=== PATIENT | male | born 1965 | race Caucasian/White ===

== ENCOUNTER 2020-12-20 06:57 | Emergency (ER) | payer SELFPAY ==
[2020-12-20 06:58] VITALS: BP 161/104; PULSE 99; RESP 18; TEMP 36.8; O2SAT 99; BMI 40.0
[2020-12-20 07:14] VITALS: BP 161/104; PULSE 99; RESP 18; TEMP 36.8; O2SAT 99
--- NOTE | 2020-12-20 07:28 | RAD_ITS ---
STUDY: X-RAY - RIGHT TIBIA AND FIBULA REASON FOR EXAM: Male, 55 years old. wound TECHNIQUE: 2 view(s) of the tibia and fibula were obtained. COMPARISON: None. FINDINGS: Diffuse smooth cortical thickening throughout the anterior tibial diaphysis (deep to the soft tissue swelling/wound) without periosteal reaction or nellie lytic process. Normal visualized fibula. There is non-specific soft tissue swelling of the anterior lower leg. RAD/Tibia & Fibula 2 Views IMPRESSION: Anterior lower leg soft tissue swelling. Anterior tibial cortical thickening without periosteal reaction, query chronic osteomyelitis or sequela of old injury. Electronically Signed: Brent Saunders MD ([place]) at 7:59 EDT , Service support ,
--- NOTE | 2020-12-20 07:30 | ED.VIS.LOWEX ---
HPI History of Present Illness Chief Complaint: Wound Narrative Narrative: 55-year-old male presenting for evaluation of a right tibial wound. Patient states that this has been here since May. He states it is slowly distended down the distal tibia. Patient describes some pain with ambulation but is able to ambulate. He has not seen his primary care physician and states that since Covid has been difficult to get a visit. He states his only medical problem is hypertension and he has not been taking his blood pressure medication because he cannot afford it. He states he has not had his wound evaluated elsewhere because he has had to work to make ends meet. He denies fever, chills, nausea, vomiting. [facility] Medical History (Updated 12/20/20 @ 07:08 by Mary Ochoa) Hypertension Home Medications clindamycin HCl 450 mg PO TID 10 Days #90 cap 12/20/20 [Rx Last Taken Unknown] Allergy/AdvReac Type Severity Reaction Status Date / Time No Known Allergies Allergy Verified 12/20/20 07:03 Social History Smoking Status: Never smoker [facility] ED Constitutional Constitutional ED: Denies chills, fever(s) or sweats Eyes Eyes: Denies blurry vision or diplopia ENT ENT ED: Denies rhinorrhea or sore throat Cardiovascular Cardiovascular: Denies chest pain or palpitations Respiratory/Chest Respiratory/Chest: Denies cough, dyspnea or sputum Gastrointestinal Gastrointestinal: Denies abdominal pain, nausea or vomiting Genitourinary Genitourinary ED: Denies dysuria or hematuria Musculoskeletal Musculoskeletal: Denies back pain or neck pain Integumentary Reports other Details: Large wound right tibia Neurologic Neurologic: Denies headache(s) or paresthesias EXAM Physical Exam Const Vital Signs: 12/20/20 06:58 12/20/20 07:14 12/20/20 09:22 Temperature 98.2 F 98.2 F Temperature Source Oral Oral Pulse Rate 99 99 72 Respiratory Rate 18 18 18 Blood Pressure 161/104 H 161/104 H 110/66 Blood Pressure Mean 123 123 80 Pulse Ox 99 99 99 Oxygen Delivery Method Room Air Room Air Room Air 12/20/20 09:23 Temperature 98 F Temperature Source Temporal Pulse Rate 81 Respiratory Rate 16 Blood Pressure 110/66 Blood Pressure Mean 80 Pulse Ox 93 Oxygen Delivery Method Room Air Positive well nourished General Appearance ED: NAD HEENT Reports moist mucous membranes normocephalic and atraumatic Resp normal respiratory effort and clear to auscultation bilaterally Cardio regular rate and regular rhythm Extremity Extremity Narrative: 6 x 5 cm area of the anterior right tibia with skin sloughing and mild cellulitic change around the borders. There is no drainage. Mild tenderness to palpation without crepitance. Neuro oriented x3 Sensorium / Orientation: alert MDM MDM MDM Narrative Medical decision making narrative: Patient presenting with a chronic wound which has been present since May. He states it is worsening currently. He is ambulatory. There is no drainage from the wound currently. He has not had any systemic signs or symptoms. His CBC today shows he has no leukocytosis with a white blood cell count 10.9. H&H are stable. CMP shows he has a mildly elevated bilirubin at 1.3 and a creatinine of 2.17 which is new from his previous renal function testing and July 2018. ESR is 54. CRP 23.6. Tib-fib x-ray of the right lower extremity on my interpretation shows no acute fracture or subluxation. There does not appear to be any subcutaneous edema. The radiologist read this as anterior tibial cortical thickening without periosteal reaction. Patient was discussed with the nurse practitioner on-call for Dr. Cortes. She did recommend follow-up with the wound care clinic for initial wound treatment. She stated that the wound care clinic will determine if he needed surgical intervention such as debridement. Patient started on antibiotics with first dose in the ED. A dressing will be placed over the wound. Wound care instructions are given to the patient. He was given referral to the wound care clinic as well as [facility] as the patient states he has no medical insurance. Patient is given return precautions. Impression: 1. Right tibial wound?cellulitis 2. Abnormal renal function Lab Data Labs: Laboratory Results - last 24 hr 12/20/20 12/20/20 12/20/20 07:25 07:25 07:25 WBC 10.9 RBC 4.98 Hgb 14.2 Hct 43.3 MCV 86.9 MCH 28.5 MCHC 32.8 RDW Std Deviation 42.1 RDW Coeff of Henry 13.4 Plt Count 301 MPV 11.1 Immature Gran % (Auto) 0.800 Neut % (Auto) 81.4 H Lymph % (Auto) 10.0 L Fallon % (Auto) 6.9 Eos % (Auto) 0.5 Baso % (Auto) 0.4 Absolute Neuts (auto) 8.9 H Absolute Lymphs (auto) 1.09 Nucleated RBC % 0 ESR 54 H Sodium Potassium Chloride Carbon Dioxide Anion Gap BUN Creatinine Estim Creat Clear Calc Est GFR (MDRD) Af Amer Est GFR (MDRD) Non-Af BUN/Creatinine Ratio Glucose Calcium Total Bilirubin AST ALT Alkaline Phosphatase C-React Prot Ext Range 23.60 H Total Protein Albumin Globulin Albumin/Globulin Ratio 12/20/20 07:25 WBC RBC Hgb Hct MCV MCH MCHC RDW Std Deviation RDW Coeff of Henry Plt Count MPV Immature Gran % (Auto) Neut % (Auto) Lymph % (Auto) Fallon % (Auto) Eos % (Auto) Baso % (Auto) Absolute Neuts (auto) Absolute Lymphs (auto) Nucleated RBC % ESR Sodium 137 Potassium 3.3 L Chloride 102 Carbon Dioxide 22.0 Anion Gap 13 BUN 30 H Creatinine 2.17 H Estim Creat Clear Calc 42.22 Est GFR (MDRD) Af Amer 41 L Est GFR (MDRD) Non-Af 34 L BUN/Creatinine Ratio 13.8 Glucose 102 Calcium 9.3 Total Bilirubin 1.30 H AST 48 H ALT 32 Alkaline Phosphatase 113 C-React Prot Ext Range Total Protein 9.0 H Albumin 4.4 Globulin 4.6 H Albumin/Globulin Ratio 1.0 Radiography Diagnostic Testing: Radiology Impression Tibia/Fibula X-Ray 12/20/20 07:28 IMPRESSION: Anterior lower leg soft tissue swelling. Anterior tibial cortical thickening without periosteal reaction, query chronic osteomyelitis or sequela of old injury. Electronically Signed: Brent Saunders MD ([place]) at 7:59 EDT , Service support , Discharge Plan Triage Chief Complaint: Wound ED Provider: Rivera Betancourt Dx/Rx/DC Orders Instructions: ED Wound Care Prescriptions: New clindamycin HCl 150 mg capsule 450 mg PO TID 10 Days Qty: 90 RF: 0 Primary Care Provider: Care Physician,No Primary Referrals: Care Physician,No Primary [Primary Care Provider] - Center,Wound [NON-STAFF] - As soon as possible Disposition Disposition: Home, Self Care
[2020-12-20 08:24] LABS: Erythrocyte Sedimentation Rate 54 mm/hr (0-20)
[2020-12-20 09:21] LABS: Absolute Lymphocyte Count 1.09 X10^3/uL (0.83-4.51); Absolute Neutrophil Count 8.9 X10^3/uL (2.0-7.7); Basophil# 0.04 X10^3/uL; Basophil% 0.4 % (0-1); Eosinophil# 0.06 X10^3/uL; Eosinophils% 0.5 % (0-5); Hematocrit 43.3 % (40-54); Hemoglobin 14.2 g/dL (13.0-16.5); Lymphocyte # 1.09 X10^3/ul (0.83-4.51); Mean Corp Hgb Conc 32.8 g/dL (32-36); Mean Corpuscular Hgb 28.5 pg (27.0-32.0); Mean Corpuscular Volume 86.9 fL (80-94); Mean Platelet Vol. 11.1 fl (6.2-12.0); Monocyte# 0.75 X10^3/uL; Monocyte% 6.9 % (0-10); NRBC Flagged by Analyzer 0 % (0-5); Neutrophil # 8.91 X10^3/uL (2.7-7.7); Neutrophil % 81.4 % (47-70); Platelet Count 301 K/mm3 (150-450); RBC Distribution Width CV 13.4 % (11.6-14.6); RBC Distribution Width SD 42.1 fl (35.1-43.9); Red Blood Count 4.98 M/mm3 (4.6-6.2); White Blood Count 10.9 K/mm3 (4.4-11.0)
[2020-12-20] MEDS: Clindamycin HCl 150 MG Capsule 450 MG PO (09:21)
[2020-12-20 09:22] VITALS: BP 110/66; PULSE 72; RESP 18; O2SAT 99
[2020-12-20 09:23] VITALS: BP 110/66; PULSE 81; RESP 16; TEMP 36.6; O2SAT 93
[2020-12-20 09:36] LABS: AST(SGOT) 48 U/L (15-37); Alanine Aminotransfer ALT/SGPT 32 U/L (16-61); Albumin, Serum 4.4 g/dL (3.2-5.0); Alkaline Phosphatase 113 U/L (45-117); Anion Gap 13 (5-15); BUN 30 mg/dL (7-18); BUN/Creat Ratio 13.8 RATIO (10-20); Calcium,Total 9.3 mg/dL (8.5-10.1); Chloride 102 mmol/L (98-107); Creatinine, Serum 2.17 mg/dL (0.70-1.30); EST Glomerular Filtration Rate 34 mL/min (>60); Est Glom Filt Rate - Afr Amer 41 mL/min (>60); Estimated Creatinine Clearance 42.22 ml/min; Globulin 4.6 g/dL (2.2-4.2); Glucose 102 mg/dL (74-106); Potassium 3.3 mmol/L (3.5-5.1); Sodium Level 137 mmol/L (136-145)
[2020-12-20 10:34] VITALS: BP 164/93; PULSE 91; RESP 14; O2SAT 99
== END 2020-12-20 10:36 | disposition home or self-care (01) ==
PROVIDERS: Emergency Provider Student in an Organized Health Care Education/Training Program
DX: L03.115 Cellulitis of right lower limb (principal)
CPT/HCPCS: 73590; 80053; 85025; 85652; 86140; 87070; 87075; 87077; 87186; 87205; 99283; A4216

== ENCOUNTER 2021-11-18 07:09 | Outpatient (RCR) | payer OTHER, SELFPAY ==
[2021-11-18 08:05] VITALS: BP 201/95; PULSE 74; RESP 16; TEMP 36.5; BMI 37.0
--- NOTE | 2021-11-19 07:21 | PCM.WC.HP ---
History of Present Illness Date of Service: 11/18/21 Chief Complaint: Swelling and edema in the lower extremities bilaterally History of Wound: This is a 56-year-old male who presents with swelling and edema in his lower extremities bilaterally. Patient states that the swelling and edema has been ongoing for approximately 15 months. It typically occurs late in each day. He sleeps on a flat mattress at night. 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 He has a history of bilateral lower extremity deep vein thrombosis, as well as prior pulmonary embolization. He was treated by his physicians with warfarin for many years, but the patient stopped unilaterally several years ago, and is currently not on anticoagulation therapy. He is obese, and is able to ambulate in relative unrestricted fashion. He has developed superficial excoriations in the gaiter areas bilaterally, and has recently been using cortisone cream topically. [facility] Medical History History of deep vein thrombosis (DVT) of lower extremity History of pulmonary embolism Hyperlipidemia Hypertension Hypertension Leg edema Leg swelling Obesity (BMI 30-39.9) Postphlebitic syndrome with inflammation Venous stasis dermatitis Vertigo Home Medications aspirin 81 mg capsule 81 mg PO DAILY 11/18/21 [History Last Taken Unknown] lisinopril 40 mg tablet 40 mg PO DAILY 11/18/21 [History Last Taken Unknown] Allergy/AdvReac Type Severity Reaction Status Date / Time No Known Allergies Allergy Verified 11/18/21 08:23 Social History Smoking Status: Never smoker Vital Signs Vital Signs Vital Signs: 11/18/21 08:05 Temperature 97.7 F L Temperature Source Temporal Pulse Rate 74 Respiratory Rate 16 Blood Pressure 201/95 H Blood Pressure Mean 130 Blood Pressure Source Monitor Blood Pressure Position Sitting Blood Pressure Location Left Arm Oxygen Delivery Method Room Air Weight Weight: 273 lb Body Mass Index (BMI) 37.0 Physical Exam Const alert, oriented x3, no apparent distress and well nourished Constitutional Narrative: The patient is obese. General Appearance: cooperative, comfortable and well developed Orientation / Consciousness: awake, oriented to person, oriented to place and oriented to time HEENT normocephalic and head/scalp atraumatic Head and Scalp: normal to inspection, normocephalic and atraumatic External Ear: external ears normal Eyes PERRL and EOMs intact bilaterally General Eye: normal appearance of both eyes Resp normal respiratory effort, normal air movement, no retractions and no use of accessory muscles Effort and Inspection: able to speak in complete sentences Extremity no calf tenderness General Extremity: Negative for clubbing or cyanosis Skin Wound Narrative: Moderate swelling and edema are noted in the patient's lower extremities bilaterally. Scattered clustered superficial excoriations are noted bilaterally in the gaiter areas. Hyperpigmentation, lipodermatosclerosis, and scaly dermatitis are also noted bilaterally in the gaiter areas of the lower extremities. Onychomycosis is noted of the toenails bilaterally. The toenails are very long and unkempt. Neuro oriented x3, CN's II-XII intact bilaterally, moves all extremities and no focal motor deficits Sensorium / Orientation: awake, alert, oriented to person, oriented to place and oriented to time Psych Appearance: grossly normal and appropriate Attitude: calm Activity / Motor Behavior: appropriate eye contact Speech: normal speech Mood & Affect: euthymic mood Thought Process: normal thought process Thought Content: normal thought content Attention / Concentration: attention grossly intact Debridement Note Debridement Note Wound debrided: Excoriations/ulcerations of the lower extremities bilaterally Laterality: Not Applicable Type of Debridement: Selective debridement Anesthesia Used: 5% Lidocaine Gel Depth: Down to and including healthy tissue Percentage of wound debrided: 100 Instrument Used: 5mm curette Tissue Removed: Bioburden and eschar Severity: Limited To Skin Breakdown Amount of bleeding with debridement: None Patient tolerated procedure: Patient tolerated procedure well Post-Debridement Measurements and Additional Note: Post-Debridement Measurements/Treatment - Nurse 1 - General Ulcer Assessment Start: 11/18/21 07:58 Freq: Status: Active Protocol: AMEYA Activity Type Activity Date Activity User E-sign Co-sign Detail Recorded Client Recorded Date Recorded By Document 11/18/21 08:05 [facility] [id number] 11/18/21 08:20 [facility] 11/18/21 08:05 - Today's Visit Information Type of service Initial Visit Arrival Mode Ambulatory Transfer Assistance None Patient Identification Verified (Name & Yes ) Patient Requires Transmission-Based No Precautions Height and Weight Height 6 ft Weight 273 lb Weight in Pounds 273.0 lbs Body Mass Index (BMI) 37.0 BMI Classification Obese BSA - Rekha 2.43 Vital Signs Temperature (97.8 F-99.1 F) 97.7 F L Temperature Source Temporal Pulse Rate (60-100) 74 Pulse Location Monitor Respiratory Rate (12-18) 16 Respiratory rate source Observation Oxygen Delivery Method Room Air Blood Pressure (90/60-120/80) 201/95 H Blood Pressure Mean 130 Source Monitor Position Sitting Blood Pressure Location Left Arm Comment counseled pt r/ t ^ bp; WILL UPDATE MD; PT DIDN'T TAKE BP MED THIS AM History Since Last Visit- (Skip if this is Patient's initial visit) Left Footwear Regular Shoe Right Footwear Regular Shoe Pain Scale: 0-10 Numeric Is Patient Pain Free? Yes Lower Extremity Assessment/ Foot Assessment/ Toe Nail Assessment Right -Posterior Tibial Palpable Yes -Dorsalis Pedis Palpable Yes -Dorsalis Pedis Doppler Monophasic -Extremity Color Hyperpigmented, Hemosiderin -Hair Growth on Legs Yes -Hair Growth on Toes No -Thick Yes -Discolored Yes -Deformed Yes -Improper Length & Hygeine Yes Left -Posterior Tibial Palpable Yes -Posterior Tibial Doppler Multiphasic -Dorsalis Pedis Palpable Yes -Dorsalis Pedis Doppler Monophasic -Extremity Color Hyperpigmented, Hemosiderin -Hair Growth on Legs Yes -Hair Growth on Toes No -Thick Yes -Discolored Yes -Deformed Yes -Improper Length & Hygeine Yes Communication Assessment Preferred language [place] Hotel Clerk Required No Able to Read Yes Able to Write Yes Communication Tools None Right Hearing Abillity Normal Left Hearing Abillity Normal Visual Assistive Devices Glasses Teaching Assessment Preferences Verbal,Written, Audio/Visual, Demonstration Barriers to Learning None Readiness To Learn Excellent Willingness to Engage in Self Management High Activies Readiness to Engage in Self Management High Activities Anxiety Level Calm Cooperation Cooperative Perception Coherent Education Importance Acknowledges Need Does Patient Smoke tobacco or other No substances Smoking Status Never smoker Is Patient Diabetic No Functional Assessment Recent Decline in Ability to Perform Denies Any Declines 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 Cultural/Jehovah'S Witness Needs that may affect No Treatment Plan WC - Nurse 1 - General Ulcer Measurement Start: 11/18/21 07:58 Freq: Status: Active Protocol: Activity Type Activity Date Activity User E-sign Co-sign Detail Recorded Client Recorded Date Recorded By Document 11/18/21 08:05 [facility] [id number] 11/18/21 08:20 [facility] 11/18/21 08:05 Wound Center Nurse 1 #1- R ALEXANDER CLUSTER -Combined with other wound No -Current Size (cm) - Length 5.4 -Current Size (cm) - Width 4.8 -Current Size (cm) - Depth 0.1 -Total Square Cm 25.92 -Date of Last Picture (Recall this 11/18/21 field) -Photo Taken Yes -Epithelialization None Present -Tunneling No -Undermining/Tunneling No -Circular Undermining No -Exudate Amt None Present -Wound Margin Distinct, Outline Attached -Granulation Amt None Present (0 %) -Slough/Fibrin Yes -Necrosis Amt Large (67-100%) -Necrotic Tissue Type Adherent Slough -Texture (Gail-wound Skin Appearance) Assessed, Localized Edema -Moisture (Gail-wound Skin Appearance) Assessed,Dry/ Scaly -Color (Gail-wound Skin Appearance) Assessed, Erythema, Hemosiderin Staining -Temperature (Gail-wound Skin No Abnormality Appearance) (Pt Warm) -Tenderness on Palpation (Gail-wound No Skin Appearance) -Ulcer Cleansing Soap and Water -Foul Odor after Cleansing No -Anesthetic Used 4% Lidocaine Solution #2-L ALEXANDER -Combined with other wound No -Current Size (cm) - Length 3.5 -Current Size (cm) - Width 3.5 -Current Size (cm) - Depth 0.1 -Total Square Cm 12.25 -Date of Last Picture (Recall this 11/18/21 field) -Photo Taken Yes -Epithelialization None Present -Tunneling No -Undermining/Tunneling No -Circular Undermining No -Exudate Amt None Present -Wound Margin Distinct, Outline Attached -Granulation Amt None Present (0 %) -Slough/Fibrin Yes -Necrosis Amt Large (67-100%) -Necrotic Tissue Type Adherent Slough -Texture (Gail-wound Skin Appearance) Assessed, Scarring -Moisture (Gail-wound Skin Appearance) Assessed,Dry/ Scaly -Color (Gail-wound Skin Appearance) Assessed, Erythema, Hemosiderin Staining -Temperature (Gail-wound Skin No Abnormality Appearance) (Pt Warm) -Tenderness on Palpation (Gail-wound No Skin Appearance) -Ulcer Cleansing Soap and Water -Foul Odor after Cleansing No -Anesthetic Used 4% Lidocaine Solution Lower Limb Edema Present Yes Right Calf (cm) 45.5 Right Ankle (cm) 28 Left Calf (cm) 45.4 Left Ankle (cm) 28 WC - Nurse 2 - General Ulcer CM Notes Start: 11/18/21 07:58 Freq: Status: Active Protocol: Activity Type Activity Date Activity User E-sign Co-sign Detail Recorded Client Recorded Date Recorded By Document 11/18/21 11:[address] [id number] 11/18/21 11:52 PL 11/18/21 11:50 Wound Center Nurse 2 #1- R ALEXANDER CLUSTER -Procedure Performed No -Wound/Ulcer Outcome Healed- Epithelialized #2-L ALEXANDER -Time 08:36 -Correct Patient Yes -Correct Side, Site, Position Yes -Correct Procedure Yes -Procedure Performed Yes -Type of Procedure Debridement -Clinical Debridement Epidermis / Dermis -Tissue Removed Epidermis, Dermis -Post Debridement (cm) - Length 3.5 -Post Debridement (cm) - Width 3.5 -Post Debridement (cm) - Depth 0.1 -Total Square (Post) (cm) 12.25 -Area of Debridement (cm) - Length 3.5 -Area of Debridement (cm) - Width 3.5 -Total Square (Area) (cm) 12.25 -Tunneling No -Undermining/Tunneling No -Circular Undermining No -Wound/Ulcer Outcome Not Healed -Ulcer Cleansing Rinsed/ Irrigated with Saline -Foul Odor after Cleansing No -Bioengineered Tissue No -Bleeding Controlled with Pressure -Treatment Response Procedure Tolerated Well -Debridement - Open, 1st 20sq cm Yes Pain Scale: 0-10 Numeric Is Patient Pain Free? Yes - Nurse 3 - General Ulcer D/C NN Start: 11/18/21 07:58 Freq: Status: Active Protocol: Activity Type Activity Date Activity User E-sign Co-sign Detail Recorded Client Recorded Date Recorded By Document 11/18/21 09:04 [facility] [id number] 11/18/21 09:07 [facility] 11/18/21 09:04 Wound Care Nurse 3 #1- R ALEXANDER CLUSTER -Ulcer Cleansing Rinsed/ Irrigated with Saline -Foul Odor after Cleansing No -Other Dressing UNNA BOOT #2-L ALEXANDER -Ulcer Cleansing Rinsed/ Irrigated with Saline -Foul Odor after Cleansing No -Other Covering UNNA BOOT BLE -Multi-Layered Wrap Application Unna Boot - Bilateral ($) -Unna Boots (Bilat) ($) 2 Treatment Response Procedure Tolerated Well Pain Scale: 0-10 Numeric Is Patient Pain Free? Yes WC - Visit Discharge Discharge Condition Stable Ambulatory Status Ambulatory Transportation Private Auto Assessment/Plan Assessment/Plan (1) Leg swelling: CODE(S): M79.89 - Other specified soft tissue disorders (2) Leg edema: CODE(S): R60.0 - Localized edema (3) Venous stasis dermatitis: CODE(S): I87.2 - Venous insufficiency (chronic) (peripheral) (4) Postphlebitic syndrome with inflammation: CODE(S): I87.029 - Postthrombotic syndrome with inflammation of unspecified lower extremity (5) Obesity (BMI 30-39.9): CODE(S): E66.9 - Obesity, unspecified (6) Hypertension: CODE(S): I10 - Essential (primary) hypertension (7) Hyperlipidemia: CODE(S): E78.5 - Hyperlipidemia, unspecified (8) Vertigo: CODE(S): R42 - Dizziness and giddiness (9) History of deep vein thrombosis (DVT) of lower extremity: CODE(S): Z86.718 - Personal history of other venous thrombosis and embolism (10) History of pulmonary embolism: CODE(S): Z86.711 - Personal history of pulmonary embolism PLAN: Plan This is a 56-year-old male who is obese, who presented with swelling and edema in his lower extremities bilaterally, which has been present for over 1 year. The patient notes the swelling and edema in his lower extremities to be worse at days end. 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 The patient's presenting symptoms and manifestations appear to be largely related to his daily routine and habits. We have had a lengthy discussion in regards to lifestyle modification. He sleeps on a flat mattress at night, and has been encouraged to continue doing so. Leg elevation has been encouraged during daytime hours. He has been encouraged to elevate his lower extremities is much as possible, with legs at heart level, or higher. Activity has been encouraged. Prolonged idle sitting has been discouraged. Weight loss has been recommended. We are to implement compression to the lower extremities by means of Unna boots, intended to provide compression as well as topical management of his scattered excoriations. Patient has been encouraged to seek evaluation by maintenance planning clerk relative to his onychomycosis and trimming of his toenails. Patient's blood pressure has been noted to be elevated, 201/95, and the patient has been encouraged to collaborate with his primary care physician in terms of management. The patient is to return in 1 week for reevaluation. Total time: 59 minutes
== END 2021-11-19 23:59 | disposition home or self-care (01) ==
LOC: WC 07:09
PROVIDERS: PCP Internal Medicine; Visit Provider Surgery
DX: L97.811 Non-pressure chronic ulcer of other part of right lower leg limited to breakdown of skin (principal); L97.821 Non-pressure chronic ulcer of other part of left lower leg limited to breakdown of skin; E78.5 Hyperlipidemia, unspecified; I10 Essential (primary) hypertension; I87.329 Chronic venous hypertension (idiopathic) with inflammation of unspecified lower extremity; I87.2 Venous insufficiency (chronic) (peripheral); R42 Dizziness and giddiness; M79.89 Other specified soft tissue disorders; R60.0 Localized edema; E66.9 Obesity, unspecified; Z79.82 Long term (current) use of aspirin; Z79.899 Other long term (current) drug therapy; Z86.718 Personal history of other venous thrombosis and embolism; Z86.711 Personal history of pulmonary embolism; Z68.37 Body mass index [BMI] 37.0-37.9, adult; B35.1 Tinea unguium
CPT/HCPCS: 29580; 97597; 99213; G0463

== ENCOUNTER 2021-12-16 08:00 | Outpatient (RCR) | payer OTHER, SELFPAY ==
[2021-11-20 00:43] VITALS: BP 201/95; PULSE 74; RESP 16; TEMP 36.5; BMI 37.0
[2021-11-21 12:57] VITALS: BP 188/98; PULSE 69; RESP 18; TEMP 36.9; BMI 37.0
--- NOTE | 2021-11-21 13:01 | WC ---
unnawraps applied per Harley Hernandez
[2021-11-25 07:55] VITALS: BP 177/106; RESP 17; TEMP 35.8; BMI 37.0
--- NOTE | 2021-11-25 08:28 | PCM.WC.HP ---
History of Present Illness Date of Service: 11/25/21 Chief Complaint: Swelling and edema in the lower extremities bilaterally History of Wound: This is a 56-year-old male who presented with swelling and edema in his lower extremities bilaterally. The patient stated that the swelling and edema had been ongoing for approximately 15 months. It typically occurs late in each day. He sleeps on a flat mattress at night. 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 He has a history of bilateral lower extremity deep vein thrombosis, as well as prior pulmonary embolization. He was treated by his physicians with warfarin for many years, but the patient stopped unilaterally several years ago, and is currently not on anticoagulation therapy. He is obese, and is able to ambulate in relative unrestricted fashion. He has developed superficial excoriations in the gaiter areas bilaterally, and had recently been using cortisone cream topically. [facility], [facility] Medical History History of deep vein thrombosis (DVT) of lower extremity History of pulmonary embolism Hyperlipidemia Hypertension Hypertension Leg edema Leg swelling Obesity (BMI 30-39.9) Postphlebitic syndrome with inflammation Venous stasis dermatitis Vertigo Home Medications aspirin 81 mg capsule 81 mg PO DAILY 11/18/21 [History Last Taken Unknown] lisinopril 40 mg tablet 40 mg PO DAILY 11/18/21 [History Last Taken Unknown] Allergy/AdvReac Type Severity Reaction Status Date / Time No Known Allergies Allergy Verified 11/18/21 08:23 Social History Smoking Status: Never smoker Vital Signs Vital Signs Vital Signs: 11/25/21 07:55 Temperature 96.4 F L Temperature Source Temporal Respiratory Rate 17 Blood Pressure 177/106 H Blood Pressure Mean 129 Blood Pressure Source Monitor Blood Pressure Position Sitting Blood Pressure Location Left Arm Oxygen Delivery Method Room Air Weight Weight: 273 lb Body Mass Index (BMI) 37.0 Physical Exam Const alert, oriented x3, no apparent distress and well nourished Constitutional Narrative: The patient is obese. General Appearance: cooperative, comfortable and well developed Orientation / Consciousness: awake, oriented to person, oriented to place and oriented to time HEENT normocephalic and head/scalp atraumatic Head and Scalp: normal to inspection, normocephalic and atraumatic External Ear: external ears normal Eyes PERRL and EOMs intact bilaterally General Eye: normal appearance of both eyes Resp normal respiratory effort, normal air movement, no retractions and no use of accessory muscles Effort and Inspection: able to speak in complete sentences Extremity no calf tenderness General Extremity: Negative for clubbing or cyanosis Skin Wound Narrative: The swelling and edema in the patient's lower extremities is markedly improved. It is now minimal. Scattered clustered superficial excoriations are noted bilaterally in the pretibial portions of the gaiter areas. They are improved over that noted 1 week ago. Chronic hyperpigmentation and lipodermatosclerosis are also noted bilaterally in the gaiter areas of the lower extremities. Onychomycosis is noted of the toenails bilaterally. The toenails are very long and unkempt. Neuro oriented x3, CN's II-XII intact bilaterally, moves all extremities and no focal motor deficits Sensorium / Orientation: awake, alert, oriented to person, oriented to place and oriented to time Psych Appearance: grossly normal and appropriate Attitude: calm Activity / Motor Behavior: appropriate eye contact Speech: normal speech Mood & Affect: euthymic mood Thought Process: normal thought process Thought Content: normal thought content Attention / Concentration: attention grossly intact Debridement Note Debridement Note No debridement was completed: No debridement was completed today Post-Debridement Measurements and Additional Note: Post-Debridement Measurements/Treatment - Nurse 1 - General Ulcer Assessment Start: 11/21/21 12:57 Freq: Status: Active Protocol: WC.LOWEVELYNT Activity Type Activity Date Activity User E-sign Co-sign Detail Recorded Client Recorded Date Recorded By Document 11/21/21 12:57 RB [id number] 11/21/21 13:02 RB Document 11/25/21 07:55 ML [id number] 11/25/21 07:59 ML 11/21/21 11/25/21 12:57 07:55 - Today's Visit Information Type of service Nurse-only Follow-up Visit Visit (Physician/PIPE COVERING MOLDER ) Arrival Mode Ambulatory Ambulatory Transfer Assistance None None Patient Identification Verified (Name & Yes No ) Patient Requires Transmission-Based No No Precautions Safety Precautions NA Height and Weight Body Mass Index (BMI) 37.0 37.0 BMI Classification Obese Obese Vital Signs Temperature (97.8 F-99.1 F) 98.5 F 96.4 F L Temperature Source Temporal Temporal Pulse Rate (60-100) 69 Pulse Location Monitor Respiratory Rate (12-18) 18 17 Respiratory rate source Observation Observation Oxygen Delivery Method Room Air Blood Pressure (90/60-120/80) 188/98 H 177/106 H Blood Pressure Mean 128 129 Source Monitor Monitor Position Semi-Fowlers Sitting Blood Pressure Location Left Arm Left Arm History Since Last Visit- (Skip if this is Patient's initial visit) Have you changed medications since your No No last visit? Any new allergies or adverse reactions No No Had a fall/change in ADL's that may No No increase risk of falls Signs or symptoms of abuse and/or No No neglect since last visit Have you been in the hospital since your No No last visit? Has dressing in place as prescribed Yes No Has compression in place as prescribed Yes N/A Has offloadiing in place as prescribed No N/A Experienced any changes in pain level or No No management Left Footwear Regular Shoe Regular Shoe Right Footwear Regular Shoe Regular Shoe Pain Scale: 0-10 Numeric Is Patient Pain Free? Yes Yes - Nurse 1 - General Ulcer Measurement Start: 11/21/21 12:57 Freq: Status: Active Protocol: Activity Type Activity Date Activity User E-sign Co-sign Detail Recorded Client Recorded Date Recorded By Document 11/21/21 12:57 RB [id number] 11/21/21 13:02 RB Document 11/25/21 07:55 ML [id number] 11/25/21 07:59 ML 11/21/21 11/25/21 12:57 07:55 Wound Center Nurse 1 #2-L ALEXANDER -Combined with other wound No -Current Size (cm) - Length 0.1 -Current Size (cm) - Width 0.1 -Current Size (cm) - Depth 0.1 -Total Square Cm 0.01 -Wound Margin Distinct, Outline Attached -Slough/Fibrin No -Necrosis Amt None Present (0 %) -Texture (Gail-wound Skin Appearance) No Abnormality -Moisture (Gail-wound Skin Appearance) No Abnormality -Color (Gail-wound Skin Appearance) No Abnormality -Temperature (Gail-wound Skin No Abnormality Appearance) (Pt Warm) -Tenderness on Palpation (Gail-wound No Skin Appearance) -Ulcer Cleansing Soap and Water -Foul Odor after Cleansing No -Anesthetic Used 4% Lidocaine Solution Lower Limb Edema Present Yes Right Calf (cm) 42 Right Ankle (cm) 27 Left Calf (cm) 40 Left Ankle (cm) 26 11/21/21 13:01 Wound Center by Nila Evans applied per Harley Hernandez Initialized on 11/21/21 13:01 - END OF NOTE WC - Nurse 3 - General Ulcer D/C NN Start: 11/21/21 12:57 Freq: Status: Active Protocol: Activity Type Activity Date Activity User E-sign Co-sign Detail Recorded Client Recorded Date Recorded By Document 11/21/21 12:57 RB [id number] 11/21/21 13:02 RB 11/21/21 12:57 Vital Signs Temperature (97.8 F-99.1 F) 98.5 F Temperature Source Temporal Pulse Rate (60-100) 69 Pulse Location Monitor Respiratory Rate (12-18) 18 Respiratory rate source Observation Blood Pressure (90/60-120/80) 188/98 H Blood Pressure Mean 128 Source Monitor Position Semi-Fowlers Blood Pressure Location Left Arm Pain Scale: 0-10 Numeric Is Patient Pain Free? Yes Wound Care Nurse 3 bilateral -Multi-Layered Wrap Application Unna Boot - Bilateral ($) -Unna Boots (Bilat) ($) 2 Treatment Response Procedure Tolerated Well WC - Visit Discharge Discharge Condition Stable Ambulatory Status Ambulatory Transportation Private Auto Medication Reconcilliation completed & No provided to patient/care provider Clinical Summary of Care Provided Yes Assessment/Plan Assessment/Plan (1) Leg swelling: CODE(S): M79.89 - Other specified soft tissue disorders (2) Leg edema: CODE(S): R60.0 - Localized edema (3) Venous stasis dermatitis: CODE(S): I87.2 - Venous insufficiency (chronic) (peripheral) (4) Postphlebitic syndrome with inflammation: CODE(S): I87.029 - Postthrombotic syndrome with inflammation of unspecified lower extremity (5) Obesity (BMI 30-39.9): CODE(S): E66.9 - Obesity, unspecified (6) Hypertension: CODE(S): I10 - Essential (primary) hypertension (7) Hyperlipidemia: CODE(S): E78.5 - Hyperlipidemia, unspecified (8) Vertigo: CODE(S): R42 - Dizziness and giddiness (9) History of deep vein thrombosis (DVT) of lower extremity: CODE(S): Z86.718 - Personal history of other venous thrombosis and embolism (10) History of pulmonary embolism: CODE(S): Z86.711 - Personal history of pulmonary embolism PLAN: Plan This is a 56-year-old male who is obese, who presented with swelling and edema in his lower extremities bilaterally, which has been present for over 1 year. The patient notes the swelling and edema in his lower extremities to be worse at days end. 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 The patient's presenting symptoms and manifestations appear to be largely related to his daily routine and habits. We have had a lengthy discussion in regards to lifestyle modification. He sleeps on a flat mattress at night, and has been encouraged to continue doing so. Leg elevation has been encouraged during daytime hours. He has been encouraged to elevate his lower extremities is much as possible, with legs at heart level, or higher. Activity has been encouraged. Prolonged idle sitting has been discouraged. Weight loss has been recommended. We are to continue compression to the lower extremities by means of Unna boots, intended to provide compression as well as topical management of his scattered excoriations. The Unna boots will be changed twice weekly. Arrangements are to be undertaken to obtain CircAid Velcro compression garments for the patient, for long-term use. Patient has been encouraged to seek evaluation by oil spot washer relative to his onychomycosis and trimming of his toenails. Patient's blood pressure has been noted to be elevated again today, and the patient has been encouraged to collaborate with his primary care physician in terms of management. He has an appointment with his primary care physician 2 days hence. The patient is to return in 1 week for reevaluation. He has shown significant progress within the last week, and discharge is anticipated once long-term compression has been arranged, and assuming he continues to show progress. Thus far, he appears to have been compliant with recommended measures. Total time: 29 minutes
[2021-11-28 12:20] VITALS: BP 177/90; PULSE 64; TEMP 37.1; BMI 37.0
[2021-12-02 08:05] VITALS: BP 187/95; PULSE 88; TEMP 36; BMI 37.0
--- NOTE | 2021-12-02 11:29 | PCM.WC.HP ---
History of Present Illness Date of Service: 12/02/21 Chief Complaint: Swelling and edema in the lower extremities bilaterally History of Wound: This is a 56-year-old male who presented with swelling and edema in his lower extremities bilaterally. The patient stated that the swelling and edema had been ongoing for approximately 15 months. It typically occurs late in each day. He sleeps on a flat mattress at night. 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 He has a history of bilateral lower extremity deep vein thrombosis, as well as prior pulmonary embolization. He was treated by his physicians with warfarin for many years, but the patient stopped unilaterally several years ago, and is currently not on anticoagulation therapy. He is obese, and is able to ambulate in relative unrestricted fashion. He has developed superficial excoriations in the gaiter areas bilaterally, and had recently been using cortisone cream topically. [facility] Medical History History of deep vein thrombosis (DVT) of lower extremity History of pulmonary embolism Hyperlipidemia Hypertension Hypertension Leg edema Leg swelling Obesity (BMI 30-39.9) Postphlebitic syndrome with inflammation Venous stasis dermatitis Vertigo Home Medications aspirin 81 mg capsule 81 mg PO DAILY 11/18/21 [History Last Taken Unknown] lisinopril 40 mg tablet 40 mg PO DAILY 11/18/21 [History Last Taken Unknown] Allergy/AdvReac Type Severity Reaction Status Date / Time No Known Allergies Allergy Verified 11/18/21 08:23 Social History Smoking Status: Never smoker Vital Signs Vital Signs Vital Signs: 12/02/21 08:05 Temperature 96.8 F L Temperature Source Temporal Pulse Rate 88 Blood Pressure 187/95 H Blood Pressure Mean 125 Blood Pressure Source Monitor Blood Pressure Position Sitting Blood Pressure Location Right Arm Weight Weight: 273 lb Body Mass Index (BMI) 37.0 Physical Exam Const alert, oriented x3, no apparent distress and well nourished Constitutional Narrative: The patient is obese. General Appearance: cooperative, comfortable and well developed Orientation / Consciousness: awake, oriented to person, oriented to place and oriented to time HEENT normocephalic and head/scalp atraumatic Head and Scalp: normal to inspection, normocephalic and atraumatic External Ear: external ears normal Eyes PERRL and EOMs intact bilaterally General Eye: normal appearance of both eyes Resp normal respiratory effort, normal air movement, no retractions and no use of accessory muscles Effort and Inspection: able to speak in complete sentences Extremity no calf tenderness General Extremity: Negative for clubbing or cyanosis Skin Wound Narrative: The swelling and edema in the patient's lower extremities is markedly improved. It is now minimal. Scattered clustered superficial excoriations are noted in the left pretibial area. They are improved over that noted 1 week ago. Chronic hyperpigmentation and lipodermatosclerosis are also noted bilaterally in the gaiter areas of the lower extremities. Onychomycosis is noted of the toenails bilaterally. The toenails are very long and unkempt. Neuro oriented x3, CN's II-XII intact bilaterally, moves all extremities and no focal motor deficits Sensorium / Orientation: awake, alert, oriented to person, oriented to place and oriented to time Psych Appearance: grossly normal and appropriate Attitude: calm Activity / Motor Behavior: appropriate eye contact Speech: normal speech Mood & Affect: euthymic mood Thought Process: normal thought process Thought Content: normal thought content Attention / Concentration: attention grossly intact Debridement Note Debridement Note Wound debrided: Left pretibial clustered ulcerations Laterality: Left Type of Debridement: Selective debridement Anesthesia Used: 5% Lidocaine Gel Depth: Down to and including healthy tissue and in the subcutaneous layer Percentage of wound debrided: 100 Instrument Used: 5mm curette Tissue Removed: Bioburden and eschar Severity: Limited To Skin Breakdown Amount of bleeding with debridement: Mild Bleeding Controlled with: Compression and gauze Patient tolerated procedure: Patient tolerated procedure well Post-Debridement Measurements and Additional Note: Post-Debridement Measurements/Treatment ANASTASIIA - Nurse 1 - General Ulcer Assessment Start: 11/21/21 12:57 Freq: Status: Active Protocol: AMEYA Activity Type Activity Date Activity User E-sign Co-sign Detail Recorded Client Recorded Date Recorded By Document 11/21/21 12:57 RB [id number] 11/21/21 13:02 RB Document 11/25/21 07:55 ML [id number] 11/25/21 07:59 ML Document 11/28/21 12:20 MW [id number] 11/28/21 12:25 MW Document 12/02/21 08:05 KR [id number] 12/02/21 08:06 KR 11/21/21 11/25/21 11/28/21 12:57 07:55 12:20 - Today's Visit Information Type of service Nurse-only Follow-up Visit Nurse-only Visit (Physician/EXCHANGE UNDERWRITING CONSULTANT Visit ) Arrival Mode Ambulatory Ambulatory Ambulatory Transfer Assistance None None Patient Identification Verified (Name & Yes No Yes ) Patient Requires Transmission-Based No No Precautions Safety Precautions NA Height and Weight Body Mass Index (BMI) 37.0 37.0 37.0 BMI Classification Obese Obese Obese Vital Signs Temperature (97.8 F-99.1 F) 98.5 F 96.4 F L 98.7 F Temperature Source Temporal Temporal Temporal Pulse Rate (60-100) 69 64 Pulse Location Monitor Monitor Respiratory Rate (12-18) 18 17 Respiratory rate source Observation Observation Oxygen Delivery Method Room Air Blood Pressure (90/60-120/80) 188/98 H 177/106 H 177/90 H Blood Pressure Mean 128 129 119 Source Monitor Monitor Monitor Position Semi-Fowlers Sitting Sitting Blood Pressure Location Left Arm Left Arm Right Arm History Since Last Visit- (Skip if this is Patient's initial visit) Have you changed medications since your No No No last visit? Any new allergies or adverse reactions No No No Had a fall/change in ADL's that may No No No increase risk of falls Signs or symptoms of abuse and/or No No No neglect since last visit Have you been in the hospital since your No No No last visit? Has dressing in place as prescribed Yes No Yes Has compression in place as prescribed Yes N/A Yes Has offloadiing in place as prescribed No N/A N/A Experienced any changes in pain level or No No No management Left Footwear Regular Shoe Regular Shoe Regular Shoe Right Footwear Regular Shoe Regular Shoe Regular Shoe Pain Scale: 0-10 Numeric Is Patient Pain Free? Yes Yes Yes 12/02/21 08:05 - Today's Visit Information Type of service Follow-up Visit (Physician/EXCHANGE UNDERWRITING CONSULTANT ) Arrival Mode Ambulatory Transfer Assistance Patient Identification Verified (Name & Yes ) Patient Requires Transmission-Based Precautions Safety Precautions Height and Weight Body Mass Index (BMI) 37.0 BMI Classification Obese Vital Signs Temperature (97.8 F-99.1 F) 96.8 F L Temperature Source Temporal Pulse Rate (60-100) 88 Pulse Location Respiratory Rate (12-18) Respiratory rate source Oxygen Delivery Method Blood Pressure (90/60-120/80) 187/95 H Blood Pressure Mean 125 Source Monitor Position Sitting Blood Pressure Location Right Arm History Since Last Visit- (Skip if this is Patient's initial visit) Have you changed medications since your No last visit? Any new allergies or adverse reactions No Had a fall/change in ADL's that may No increase risk of falls Signs or symptoms of abuse and/or No neglect since last visit Have you been in the hospital since your No last visit? Has dressing in place as prescribed Has compression in place as prescribed Yes Has offloadiing in place as prescribed N/A Experienced any changes in pain level or No management Left Footwear Regular Shoe Right Footwear Regular Shoe Pain Scale: 0-10 Numeric Is Patient Pain Free? Yes WC - Nurse 1 - General Ulcer Measurement Start: 11/21/21 12:57 Freq: Status: Active Protocol: Activity Type Activity Date Activity User E-sign Co-sign Detail Recorded Client Recorded Date Recorded By Document 11/21/21 12:57 RB [id number] 11/21/21 13:02 RB Document 11/25/21 07:55 ML [id number] 11/25/21 07:59 ML Document 11/28/21 12:20 MW [id number] 11/28/21 12:25 MW Document 12/02/21 08:05 KR [id number] 12/02/21 08:06 KR 11/21/21 11/25/21 11/28/21 12:57 07:55 12:20 Wound Center Nurse 1 #2-L ALEXANDER -Combined with other wound No -Current Size (cm) - Length 0.1 -Current Size (cm) - Width 0.1 -Current Size (cm) - Depth 0.1 -Total Square Cm 0.01 -Exudate Amt -Wound Margin Distinct, Outline Attached -Granulation Amt -Slough/Fibrin No -Necrosis Amt None Present (0 %) -Texture (Gail-wound Skin Appearance) No Abnormality -Moisture (Gail-wound Skin Appearance) No Abnormality -Color (Gail-wound Skin Appearance) No Abnormality -Temperature (Gail-wound Skin No Abnormality Appearance) (Pt Warm) -Tenderness on Palpation (Gail-wound No Skin Appearance) -Ulcer Cleansing Soap and Water -Foul Odor after Cleansing No -Anesthetic Used 4% Lidocaine Solution Lower Limb Edema Present Yes Right Calf (cm) 42 41 Right Ankle (cm) 27 29 Left Calf (cm) 40 Left Ankle (cm) 26 12/02/21 08:05 Wound Center Nurse 1 #2-L ALEXANDER -Combined with other wound -Current Size (cm) - Length 0.1 -Current Size (cm) - Width 0.1 -Current Size (cm) - Depth 0.1 -Total Square Cm 0.01 -Exudate Amt None Present -Wound Margin Distinct, Outline Attached -Granulation Amt None Present (0 %) -Slough/Fibrin -Necrosis Amt None Present (0 %) -Texture (Gail-wound Skin Appearance) Assessed, Scarring -Moisture (Gail-wound Skin Appearance) Assessed,Dry/ Scaly -Color (Gail-wound Skin Appearance) No Abnormality, Assessed -Temperature (Gail-wound Skin No Abnormality Appearance) (Pt Warm) -Tenderness on Palpation (Gail-wound No Skin Appearance) -Ulcer Cleansing Soap and Water -Foul Odor after Cleansing No -Anesthetic Used 5% Lidocaine Gel Lower Limb Edema Present Right Calf (cm) 44.1 Right Ankle (cm) 28.2 Left Calf (cm) 44.2 Left Ankle (cm) 27.5 11/21/21 13:01 Wound Center by Nila Evans applied per Harley Hernandez Initialized on 11/21/21 13:01 - END OF NOTE WC - Nurse 2 - General Ulcer CM Notes Start: 11/21/21 12:57 Freq: Status: Active Protocol: Activity Type Activity Date Activity User E-sign Co-sign Detail Recorded Client Recorded Date Recorded By Document 12/02/21 08:45 PL [id number] 12/02/21 08:46 PL 12/02/21 08:45 Wound Center Nurse 2 #2-L ALEXANDER -Time 08:19 -Correct Patient Yes -Correct Side, Site, Position Yes -Correct Procedure Yes -Procedure Performed Yes -Type of Procedure Debridement -Clinical Debridement Epidermis / Dermis -Tissue Removed Epidermis, Dermis -Post Debridement (cm) - Length 0.1 -Post Debridement (cm) - Width 0.1 -Post Debridement (cm) - Depth 0.1 -Total Square (Post) (cm) 0.01 -Area of Debridement (cm) - Length 0.1 -Area of Debridement (cm) - Width 0.1 -Total Square (Area) (cm) 0.01 -Tunneling No -Undermining/Tunneling No -Circular Undermining No -Wound/Ulcer Outcome Not Healed -Ulcer Cleansing Rinsed/ Irrigated with Saline -Foul Odor after Cleansing No -Bioengineered Tissue No -Bleeding Controlled with Pressure -Treatment Response Procedure Tolerated Well -Debridement - Open, 1st 20sq cm Yes Pain Scale: 0-10 Numeric Is Patient Pain Free? Yes WC - Nurse 3 - General Ulcer D/C NN Start: 11/21/21 12:57 Freq: Status: Active Protocol: Activity Type Activity Date Activity User E-sign Co-sign Detail Recorded Client Recorded Date Recorded By Document 11/21/21 12:57 RB [id number] 11/21/21 13:02 RB Document 11/25/21 08:28 ML [id number] 11/25/21 08:29 ML Document 11/28/21 12:20 MW [id number] 11/28/21 12:25 MW Edit Result 11/28/21 12:20 MW (1) [id number] 12/01/21 07:12 PL Document 12/02/21 08:28 KR [id number] 12/02/21 08:28 KR (1) bilateral - Multi-Layered Wrap Application => Unna Boot - => Bilateral ($) - Unna Boots (Bilat) ($) => 2 11/21/21 11/25/21 11/28/21 12:57 08:28 12:20 Vital Signs Temperature (97.8 F-99.1 F) 98.5 F 98.7 F Temperature Source Temporal Temporal Pulse Rate (60-100) 69 64 Pulse Location Monitor Monitor Respiratory Rate (12-18) 18 Respiratory rate source Observation Blood Pressure (90/60-120/80) 188/98 H 177/90 H Blood Pressure Mean 128 119 Source Monitor Monitor Position Semi-Fowlers Sitting Blood Pressure Location Left Arm Right Arm Pain Scale: 0-10 Numeric Is Patient Pain Free? Yes Yes Yes Wound Care Nurse 3 #2-L ALEXANDER -Ulcer Cleansing bilateral -Multi-Layered Wrap Application Unna Boot - Unna Boot - Unna Boot - Bilateral ($) Bilateral ($) Bilateral ($) -Unna Boots (Bilat) ($) 2 2 2 Treatment Response Procedure Tolerated Well WC - Visit Discharge Discharge Condition Stable Ambulatory Status Ambulatory Transportation Private Auto Medication Reconcilliation completed & No provided to patient/care provider Clinical Summary of Care Provided Yes 12/02/21 08:28 Vital Signs Temperature (97.8 F-99.1 F) Temperature Source Pulse Rate (60-100) Pulse Location Respiratory Rate (12-18) Respiratory rate source Blood Pressure (90/60-120/80) Blood Pressure Mean Source Position Blood Pressure Location Pain Scale: 0-10 Numeric Is Patient Pain Free? Yes Wound Care Nurse 3 #2-L ALEXANDER -Ulcer Cleansing Rinsed/ Irrigated with Saline bilateral -Multi-Layered Wrap Application Unna Boot - Bilateral ($) -Unna Boots (Bilat) ($) 2 Treatment Response WC - Visit Discharge Discharge Condition Stable Ambulatory Status Ambulatory Transportation Private Auto Medication Reconcilliation completed & provided to patient/care provider Clinical Summary of Care Provided Assessment/Plan Assessment/Plan (1) Leg swelling: CODE(S): M79.89 - Other specified soft tissue disorders (2) Leg edema: CODE(S): R60.0 - Localized edema (3) Venous stasis dermatitis: CODE(S): I87.2 - Venous insufficiency (chronic) (peripheral) (4) Postphlebitic syndrome with inflammation: CODE(S): I87.029 - Postthrombotic syndrome with inflammation of unspecified lower extremity (5) Obesity (BMI 30-39.9): CODE(S): E66.9 - Obesity, unspecified (6) Hypertension: CODE(S): I10 - Essential (primary) hypertension (7) Hyperlipidemia: CODE(S): E78.5 - Hyperlipidemia, unspecified (8) Vertigo: CODE(S): R42 - Dizziness and giddiness (9) History of deep vein thrombosis (DVT) of lower extremity: CODE(S): Z86.718 - Personal history of other venous thrombosis and embolism (10) History of pulmonary embolism: CODE(S): Z86.711 - Personal history of pulmonary embolism PLAN: Plan This is a 56-year-old male who is obese, who presented with swelling and edema in his lower extremities bilaterally, which has been present for over 1 year. The patient notes the swelling and edema in his lower extremities to be worse at day's end. 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 The patient's presenting symptoms and manifestations appear to be largely related to his daily routine and habits. We have had a lengthy discussion in regards to lifestyle modification. He sleeps on a flat mattress at night, and has been encouraged to continue doing so. Leg elevation has been encouraged during daytime hours. He has been encouraged to elevate his lower extremities is much as possible, with legs at heart level, or higher. Activity has been encouraged. Prolonged idle sitting has been discouraged. Weight loss has been recommended. We are to continue compression to the lower extremities by means of Unna boots, intended to provide compression as well as topical management of his scattered excoriations. The Unna boots will be changed twice weekly. Arrangements are to be undertaken to obtain CircAid Velcro compression garments for the patient, for long-term use. The CircAid Velcro compression garments have been ordered, and delivery is awaited. The patient has been encouraged to seek evaluation by approver relative to his onychomycosis and trimming of his toenails. He has arranged a podiatric appointment for December 18, 2021. The patient is to return in 2 weeks for reevaluation. He has shown significant progress within the last week, and discharge is anticipated once long-term compression has been arranged, and assuming he continues to show progress. Thus far, he appears to have been compliant with recommended measures. Total time: 28 minutes
[2021-12-09 13:22] VITALS: BP 151/81; PULSE 77; RESP 16; TEMP 36; BMI 37.0
[2021-12-16 07:59] VITALS: BP 171/95; PULSE 59; RESP 22; TEMP 36.2; BMI 37.0
--- NOTE | 2021-12-16 08:42 | HP.PCM_ITS ---
History of Present Illness Date of Service: 12/16/21 Chief Complaint: Swelling and edema in the lower extremities bilaterally History of Wound: This is a 56-year-old male who presented with swelling and edema in his lower extremities bilaterally. The patient stated that the swelling and edema had been ongoing for approximately 15 months. It typically occurs late in each day. He sleeps on a flat mattress at night. 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 He has a history of bilateral lower extremity deep vein thrombosis, as well as prior pulmonary embolization. He was treated by his physicians with warfarin for many years, but the patient stopped unilaterally several years ago, and is currently not on anticoagulation therapy. He is obese, and is able to ambulate in relative unrestricted fashion. He has developed superficial excoriations in the gaiter areas bilaterally, and had recently been using cortisone cream topically. [facility] Medical History History of deep vein thrombosis (DVT) of lower extremity History of pulmonary embolism Hyperlipidemia Hypertension Hypertension Leg edema Leg swelling Obesity (BMI 30-39.9) Postphlebitic syndrome with inflammation Venous stasis dermatitis Vertigo Home Medications aspirin 81 mg capsule 81 mg PO DAILY 11/18/21 [History Last Taken Unknown] lisinopril 40 mg tablet 40 mg PO DAILY 11/18/21 [History Last Taken Unknown] Allergy/AdvReac Type Severity Reaction Status Date / Time No Known Allergies Allergy Verified 11/18/21 08:23 Social History Smoking Status: Never smoker Vital Signs Vital Signs Vital Signs: 12/16/21 07:59 Temperature 97.1 F L Temperature Source Temporal Pulse Rate 59 L Respiratory Rate 22 H Blood Pressure 171/95 H Blood Pressure Mean 120 Blood Pressure Source Monitor Weight Weight: 273 lb Body Mass Index (BMI) 37.0 Physical Exam Const alert, oriented x3, no apparent distress and well nourished Constitutional Narrative: The patient is obese. General Appearance: cooperative, comfortable and well developed Orientation / Consciousness: awake, oriented to person, oriented to place and oriented to time HEENT normocephalic and head/scalp atraumatic Head and Scalp: normal to inspection, normocephalic and atraumatic External Ear: external ears normal Eyes PERRL and EOMs intact bilaterally General Eye: normal appearance of both eyes Resp normal respiratory effort, normal air movement, no retractions and no use of accessory muscles Effort and Inspection: able to speak in complete sentences Extremity no calf tenderness General Extremity: Negative for clubbing or cyanosis Skin Wound Narrative: The swelling and edema in the patient's lower extremities is markedly improved, and now essentially resolved. The scattered clustered superficial excoriations are now completely healed bilaterally. 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 Onychomycosis is noted of the toenails bilaterally. The toenails have been trimmed by circuit board inspector since patient's last visit. Neuro oriented x3, CN's II-XII intact bilaterally, moves all extremities and no focal motor deficits Sensorium / Orientation: awake, alert, oriented to person, oriented to place and oriented to time Psych Appearance: grossly normal and appropriate Attitude: calm Activity / Motor Behavior: appropriate eye contact Speech: normal speech Mood & Affect: euthymic mood Thought Process: normal thought process Thought Content: normal thought content Attention / Concentration: attention grossly intact Debridement Note Debridement Note No debridement was completed: No debridement was completed today (There are no open wounds or ulcerations.) Post-Debridement Measurements and Additional Note: Post-Debridement Measurements/Treatment WC - Nurse 1 - General Ulcer Assessment Start: 11/21/21 12:57 Freq: Status: Active Protocol: ANASTASIIA.JAYSON Activity Type Activity Date Activity User E-sign Co-sign Detail Recorded Client Recorded Date Recorded By Document 11/21/21 12:57 RB [id number] 11/21/21 13:02 RB Document 11/25/21 07:55 ML [id number] 11/25/21 07:59 ML Document 11/28/21 12:20 MW [id number] 11/28/21 12:25 MW Document 12/02/21 08:05 KR [id number] 12/02/21 08:06 KR Document 12/09/21 13:22 BMF [id number] 12/09/21 13:24 BMF Document 12/16/21 07:59 DL [id number] 12/16/21 08:07 DL 09/0211/25/21 11/28/21 12:57 07:55 12:20 WC - Today's Visit Information Type of service Nurse-only Follow-up Visit Nurse-only Visit (Physician/TIGHTENING MACHINE OPERATOR Visit ) Arrival Mode Ambulatory Ambulatory Ambulatory Transfer Assistance None None Patient Identification Verified (Name & Yes No Yes ) Patient Requires Transmission-Based No No Precautions Safety Precautions NA Height and Weight Body Mass Index (BMI) 37.0 37.0 37.0 BMI Classification Obese Obese Obese Vital Signs Temperature (97.8 F-99.1 F) 98.5 F 96.4 F L 98.7 F Temperature Source Temporal Temporal Temporal Pulse Rate (60-100) 69 64 Pulse Location Monitor Monitor Respiratory Rate (12-18) 18 17 Respiratory rate source Observation Observation Oxygen Delivery Method Room Air Blood Pressure (90/60-120/80) 188/98 H 177/106 H 177/90 H Blood Pressure Mean 128 129 119 Source Monitor Monitor Monitor Position Semi-Fowlers Sitting Sitting Blood Pressure Location Left Arm Left Arm Right Arm History Since Last Visit- (Skip if this is Patient's initial visit) Have you changed medications since your No No No last visit? Any new allergies or adverse reactions No No No Had a fall/change in ADL's that may No No No increase risk of falls Signs or symptoms of abuse and/or No No No neglect since last visit Have you been in the hospital since your No No No last visit? Has dressing in place as prescribed Yes No Yes Has compression in place as prescribed Yes N/A Yes Has offloadiing in place as prescribed No N/A N/A Experienced any changes in pain level or No No No management Left Footwear Regular Shoe Regular Shoe Regular Shoe Right Footwear Regular Shoe Regular Shoe Regular Shoe Pain Scale: 0-10 Numeric Is Patient Pain Free? Yes Yes Yes 12/02/21 12/09/21 12/16/21 08:05 13:22 07:59 WC - Today's Visit Information Type of service Follow-up Visit Nurse-only Follow-up Visit (Physician/TIGHTENING MACHINE OPERATOR Visit (Physician/TIGHTENING MACHINE OPERATOR ) ) Arrival Mode Ambulatory Ambulatory Ambulatory Transfer Assistance None None Patient Identification Verified (Name & Yes Yes Yes ) Patient Requires Transmission-Based No No Precautions Safety Precautions Height and Weight Body Mass Index (BMI) 37.0 37.0 37.0 BMI Classification Obese Obese Obese Vital Signs Temperature (97.8 F-99.1 F) 96.8 F L 96.8 F L 97.1 F L Temperature Source Temporal Temporal Temporal Pulse Rate (60-100) 88 77 59 L Pulse Location Monitor Monitor Respiratory Rate (12-18) 16 22 H Respiratory rate source Observation Observation Oxygen Delivery Method Room Air Blood Pressure (90/60-120/80) 187/95 H 151/81 H 171/95 H Blood Pressure Mean 125 104 120 Source Monitor Monitor Monitor Position Sitting Sitting Blood Pressure Location Right Arm Right Arm History Since Last Visit- (Skip if this is Patient's initial visit) Have you changed medications since your No No No last visit? Any new allergies or adverse reactions No No No Had a fall/change in ADL's that may No No No increase risk of falls Signs or symptoms of abuse and/or No No No neglect since last visit Have you been in the hospital since your No No No last visit? Has dressing in place as prescribed Yes Yes Has compression in place as prescribed Yes Yes Yes Has offloadiing in place as prescribed N/A N/A N/A Experienced any changes in pain level or No No management Left Footwear Regular Shoe Regular Shoe Right Footwear Regular Shoe Regular Shoe Pain Scale: 0-10 Numeric Is Patient Pain Free? Yes Yes Yes WC - Nurse 1 - General Ulcer Measurement Start: 11/21/21 12:57 Freq: Status: Active Protocol: Activity Type Activity Date Activity User E-sign Co-sign Detail Recorded Client Recorded Date Recorded By Document 11/21/21 12:57 RB [id number] 11/21/21 13:02 RB Document 11/25/21 07:55 ML [id number] 11/25/21 07:59 ML Document 11/28/21 12:20 MW [id number] 11/28/21 12:25 MW Document 12/02/21 08:05 KR [id number] 12/02/21 08:06 KR Document 12/09/21 13:22 BMF [id number] 12/09/21 13:24 BMF Document 12/16/21 07:59 DL [id number] 12/16/21 08:07 DL 11/21/21 11/25/21 11/28/21 12:57 07:55 12:20 Wound Center Nurse 1 #2-L ALEXANDER -Combined with other wound No -Current Size (cm) - Length 0.1 -Current Size (cm) - Width 0.1 -Current Size (cm) - Depth 0.1 -Total Square Cm 0.01 -Photo Taken -Epithelialization -Exudate Amt -Wound Margin Distinct, Outline Attached -Granulation Amt -Granulation Quality -Slough/Fibrin No -Necrosis Amt None Present (0 %) -Structure Exposed -Texture (Gail-wound Skin Appearance) No Abnormality -Moisture (Gail-wound Skin Appearance) No Abnormality -Color (Gail-wound Skin Appearance) No Abnormality -Temperature (Gail-wound Skin No Abnormality Appearance) (Pt Warm) -Tenderness on Palpation (Gail-wound No Skin Appearance) -Ulcer Cleansing Soap and Water -Foul Odor after Cleansing No -Anesthetic Used 4% Lidocaine Solution Lower Limb Edema Present Yes Right Calf (cm) 42 41 Right Ankle (cm) 27 29 Left Calf (cm) 40 Left Ankle (cm) 26 12/02/21 12/09/21 12/16/21 08:05 13:22 07:59 Wound Center Nurse 1 #2-L ALEXANDER -Combined with other wound No -Current Size (cm) - Length 0.1 0 0 -Current Size (cm) - Width 0.1 0 0 -Current Size (cm) - Depth 0.1 0 -Total Square Cm 0.01 0 0 -Photo Taken Yes -Epithelialization Large 67-100% -Exudate Amt None Present None Present -Wound Margin Distinct, Flat & Intact Outline Attached -Granulation Amt None Present (0 Large (67-100%) %) -Granulation Quality [place] -Slough/Fibrin -Necrosis Amt None Present (0 None Present (0 %) %) -Structure Exposed N/A -Texture (Gail-wound Skin Appearance) Assessed, Scarring Scarring -Moisture (Gail-wound Skin Appearance) Assessed,Dry/ No Abnormality Scaly -Color (Gail-wound Skin Appearance) No Abnormality, Hemosiderin Assessed Staining -Temperature (Gail-wound Skin No Abnormality No Abnormality Appearance) (Pt Warm) (Pt Warm) -Tenderness on Palpation (Gail-wound No Skin Appearance) -Ulcer Cleansing Soap and Water Soap and Water -Foul Odor after Cleansing No No -Anesthetic Used 5% Lidocaine Gel Lower Limb Edema Present Yes Right Calf (cm) 44.1 44.4 43.9 Right Ankle (cm) 28.2 26.5 27.2 Left Calf (cm) 44.2 42.2 42.7 Left Ankle (cm) 27.5 25.7 27.6 11/21/21 13:01 Wound Center by Nila Evans applied per Harley Hernandez Initialized on 11/21/21 13:01 - END OF NOTE WC - Nurse 2 - General Ulcer CM Notes Start: 11/21/21 12:57 Freq: Status: Active Protocol: Activity Type Activity Date Activity User E-sign Co-sign Detail Recorded Client Recorded Date Recorded By Document 12/02/21 08:45 PL [id number] 12/02/21 08:46 PL 12/02/21 08:45 Wound Center Nurse 2 #2-L ALEXANDER -Time 08:19 -Correct Patient Yes -Correct Side, Site, Position Yes -Correct Procedure Yes -Procedure Performed Yes -Type of Procedure Debridement -Clinical Debridement Epidermis / Dermis -Tissue Removed Epidermis, Dermis -Post Debridement (cm) - Length 0.1 -Post Debridement (cm) - Width 0.1 -Post Debridement (cm) - Depth 0.1 -Total Square (Post) (cm) 0.01 -Area of Debridement (cm) - Length 0.1 -Area of Debridement (cm) - Width 0.1 -Total Square (Area) (cm) 0.01 -Tunneling No -Undermining/Tunneling No -Circular Undermining No -Wound/Ulcer Outcome Not Healed -Ulcer Cleansing Rinsed/ Irrigated with Saline -Foul Odor after Cleansing No -Bioengineered Tissue No -Bleeding Controlled with Pressure -Treatment Response Procedure Tolerated Well -Debridement - Open, 1st 20sq cm Yes Pain Scale: 0-10 Numeric Is Patient Pain Free? Yes - Nurse 3 - General Ulcer D/C NN Start: 11/21/21 12:57 Freq: Status: Active Protocol: Activity Type Activity Date Activity User E-sign Co-sign Detail Recorded Client Recorded Date Recorded By Document 11/21/21 12:57 RB [id number] 11/21/21 13:02 RB Document 11/25/21 08:28 ML [id number] 11/25/21 08:29 ML Document 09/09/22 12:20 MW [id number] 11/28/21 12:25 MW Edit Result 11/28/21 12:20 MW (1) [id number] 12/01/21 07:12 PL Document 12/02/21 08:28 KR [id number] 12/02/21 08:28 KR Document 12/09/21 13:22 BMF [id number] 12/09/21 13:24 BMF (1) bilateral - Multi-Layered Wrap Application => Unna Boot - => Bilateral ($) - Unna Boots (Bilat) ($) => 2 11/21/21 11/25/21 11/28/21 12:57 08:28 12:20 Vital Signs Temperature (97.8 F-99.1 F) 98.5 F 98.7 F Temperature Source Temporal Temporal Pulse Rate (60-100) 69 64 Pulse Location Monitor Monitor Respiratory Rate (12-18) 18 Respiratory rate source Observation Oxygen Delivery Method Blood Pressure (90/60-120/80) 188/98 H 177/90 H Blood Pressure Mean 128 119 Source Monitor Monitor Position Semi-Fowlers Sitting Blood Pressure Location Left Arm Right Arm Pain Scale: 0-10 Numeric Is Patient Pain Free? Yes Yes Yes Wound Care Nurse 3 #2-L ALEXANDER -Ulcer Cleansing -Other Dressing bilateral -Multi-Layered Wrap Application Unna Boot - Unna Boot - Unna Boot - Bilateral ($) Bilateral ($) Bilateral ($) -Unna Boots (Bilat) ($) 2 2 2 Treatment Response Procedure Tolerated Well WC - Visit Discharge Discharge Condition Stable Ambulatory Status Ambulatory Transportation Private Auto Medication Reconcilliation completed & No provided to patient/care provider Clinical Summary of Care Provided Yes 12/02/21 12/09/21 08:28 13:22 Vital Signs Temperature (97.8 F-99.1 F) 96.8 F L Temperature Source Temporal Pulse Rate (60-100) 77 Pulse Location Monitor Respiratory Rate (12-18) 16 Respiratory rate source Observation Oxygen Delivery Method Room Air Blood Pressure (90/60-120/80) 151/81 H Blood Pressure Mean 104 Source Monitor Position Sitting Blood Pressure Location Right Arm Pain Scale: 0-10 Numeric Is Patient Pain Free? Yes Yes Wound Care Nurse 3 #2-L ALEXANDER -Ulcer Cleansing Rinsed/ Irrigated with Saline -Other Dressing unna boot bilateral -Multi-Layered Wrap Application Unna Boot - Unna Boot - Bilateral ($) Bilateral ($) -Unna Boots (Bilat) ($) 2 2 Treatment Response Procedure Tolerated Well WC - Visit Discharge Discharge Condition Stable Stable Ambulatory Status Ambulatory Ambulatory Transportation Private Auto Private Auto Medication Reconcilliation completed & provided to patient/care provider Clinical Summary of Care Provided Assessment/Plan Assessment/Plan (1) Leg swelling: CODE(S): M79.89 - Other specified soft tissue disorders (2) Leg edema: CODE(S): R60.0 - Localized edema (3) Venous stasis dermatitis: CODE(S): I87.2 - Venous insufficiency (chronic) (peripheral) (4) Postphlebitic syndrome with inflammation: CODE(S): I87.029 - Postthrombotic syndrome with inflammation of unspecified lower extremity (5) Obesity (BMI 30-39.9): CODE(S): E66.9 - Obesity, unspecified (6) Hypertension: CODE(S): I10 - Essential (primary) hypertension (7) Hyperlipidemia: CODE(S): E78.5 - Hyperlipidemia, unspecified (8) Vertigo: CODE(S): R42 - Dizziness and giddiness (9) History of deep vein thrombosis (DVT) of lower extremity: CODE(S): Z86.718 - Personal history of other venous thrombosis and embolism (10) History of pulmonary embolism: CODE(S): Z86.711 - Personal history of pulmonary embolism PLAN: Plan This is a 56-year-old male who is obese, who presented with swelling and edema in his lower extremities bilaterally, which has been present for over 1 year. The patient notes the swelling and edema in his lower extremities to be worse at day's end. 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 The patient's presenting symptoms and manifestations appear to be largely related to his daily routine and habits. We have had a lengthy discussion in regards to lifestyle modification. He sleeps on a flat mattress at night, and has been encouraged to continue doing so. Leg elevation has been encouraged during daytime hours. He has been encouraged to elevate his lower extremities is much as possible, with legs at heart level, or higher. Activity has been encouraged. Prolonged idle sitting has been discouraged. Weight loss has been recommended. We are to implement compression to the lower extremities by means of Tubigrip's, of an upper range of compression. He is to wear each day until bedtime, then apply skin moisturizing lotion topically. Arrangements are to be undertaken to obtain CircAid Velcro compression garments for the patient, for long-term use. The CircAid Velcro compression garments have been ordered, and delivery is awaited. The patient has been seen by a circuit board inspector within the last week, and his toenails have been trimmed, as had been recommended. The patient is to return in 2 weeks for reevaluation. He has shown significant progress recently, and discharge is anticipated once long-term compression has been arranged Thus far, he appears to have been compliant with recommended measures. Total time: 29 minutes
== END 2021-12-19 23:59 | disposition home or self-care (01) ==
LOC: WC 08:00
PROVIDERS: PCP Internal Medicine; Visit Provider Surgery
DX: I83.028 Varicose veins of left lower extremity with ulcer other part of lower leg (principal); L97.821 Non-pressure chronic ulcer of other part of left lower leg limited to breakdown of skin; I83.11 Varicose veins of right lower extremity with inflammation; R60.0 Localized edema; B35.1 Tinea unguium; I87.2 Venous insufficiency (chronic) (peripheral); I10 Essential (primary) hypertension; E78.5 Hyperlipidemia, unspecified; E66.9 Obesity, unspecified; R42 Dizziness and giddiness; M79.89 Other specified soft tissue disorders; Z79.82 Long term (current) use of aspirin; Z79.899 Other long term (current) drug therapy; Z86.718 Personal history of other venous thrombosis and embolism; Z86.711 Personal history of pulmonary embolism
CPT/HCPCS: 29580; 97597; 99213; G0463

== ENCOUNTER 2021-12-30 12:45 | Outpatient (RCR) | payer OTHER, SELFPAY ==
[2021-12-20 01:35] VITALS: BP 171/95; PULSE 59; RESP 22; TEMP 36.2; BMI 37.0
[2021-12-30 13:08] VITALS: TEMP 36.1; BMI 37.0
--- NOTE | 2021-12-30 14:01 | PCM.WC.HP ---
History of Present Illness Date of Service: 12/30/21 Chief Complaint: Swelling and edema in the lower extremities bilaterally History of Wound: This is a 56-year-old male who presented with swelling and edema in his lower extremities bilaterally. The patient stated that the swelling and edema had been ongoing for approximately 15 months. It typically occurs late in each day. He sleeps on a flat mattress at night. 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 He has a history of bilateral lower extremity deep vein thrombosis, as well as prior pulmonary embolization. He was treated by his physicians with warfarin for many years, but the patient stopped unilaterally several years ago, and is currently not on anticoagulation therapy. He is obese, and is able to ambulate in relative unrestricted fashion. He has developed superficial excoriations in the gaiter areas bilaterally, and had recently been using cortisone cream topically. [facility] Medical History History of deep vein thrombosis (DVT) of lower extremity History of pulmonary embolism Hyperlipidemia Hypertension Hypertension Leg edema Leg swelling Obesity (BMI 30-39.9) Postphlebitic syndrome with inflammation Venous stasis dermatitis Vertigo Home Medications aspirin 81 mg capsule 81 mg PO DAILY 11/18/21 [History Last Taken Unknown] lisinopril 40 mg tablet 40 mg PO DAILY 11/18/21 [History Last Taken Unknown] Allergy/AdvReac Type Severity Reaction Status Date / Time No Known Allergies Allergy Verified 11/18/21 08:23 Social History Smoking Status: Never smoker Vital Signs Vital Signs Vital Signs: 12/30/21 13:08 Temperature 97.0 F L Temperature Source Temporal Blood Pressure Source Monitor Blood Pressure Position Semi-Fowlers Blood Pressure Location Right Arm Weight Weight: 273 lb Body Mass Index (BMI) 37.0 Physical Exam Const alert, oriented x3, no apparent distress and well nourished Constitutional Narrative: The patient is obese. General Appearance: cooperative, comfortable and well developed Orientation / Consciousness: awake, oriented to person, oriented to place and oriented to time HEENT normocephalic and head/scalp atraumatic Head and Scalp: normal to inspection, normocephalic and atraumatic External Ear: external ears normal Eyes PERRL and EOMs intact bilaterally General Eye: normal appearance of both eyes Resp normal respiratory effort, normal air movement, no retractions and no use of accessory muscles Effort and Inspection: able to speak in complete sentences Extremity no calf tenderness General Extremity: Negative for clubbing or cyanosis Skin Wound Narrative: The swelling and edema in the patient's lower extremities is markedly improved, and now essentially resolved. The scattered clustered superficial excoriations are now completely healed bilaterally. 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 Onychomycosis is noted of the toenails bilaterally. The toenails have been trimmed by a technology project manager since patient's initial visit. Neuro oriented x3, CN's II-XII intact bilaterally, moves all extremities and no focal motor deficits Sensorium / Orientation: awake, alert, oriented to person, oriented to place and oriented to time Psych Appearance: grossly normal and appropriate Attitude: calm Activity / Motor Behavior: appropriate eye contact Speech: normal speech Mood & Affect: euthymic mood Thought Process: normal thought process Thought Content: normal thought content Attention / Concentration: attention grossly intact Debridement Note Debridement Note No debridement was completed: No debridement was completed today (There are no open wounds or ulcerations.) Post-Debridement Measurements and Additional Note: Post-Debridement Measurements/Treatment - Nurse 1 - General Ulcer Assessment Start: 12/30/21 13:08 Freq: Status: Active Protocol: WC.LOWEVELYNT Activity Type Activity Date Activity User E-sign Co-sign Detail Recorded Client Recorded Date Recorded By Document 12/30/21 13:08 JAIME [id number] 12/30/21 13:10 JAIME 12/30/21 13:08 - Today's Visit Information Type of service Follow-up Visit (Physician/SYSTEMS DEVELOPMENT MANAGER ) Arrival Mode Ambulatory Patient Identification Verified (Name & Yes ) Height and Weight Body Mass Index (BMI) 37.0 BMI Classification Obese Vital Signs Temperature (97.8 F-99.1 F) 97.0 F L Temperature Source Temporal Pulse Location Monitor Source Monitor Position Semi-Fowlers Blood Pressure Location Right Arm History Since Last Visit- (Skip if this is Patient's initial visit) Have you changed medications since your No last visit? Any new allergies or adverse reactions No Had a fall/change in ADL's that may No increase risk of falls Signs or symptoms of abuse and/or No neglect since last visit Have you been in the hospital since your No last visit? Has dressing in place as prescribed Yes Has compression in place as prescribed N/A Has offloadiing in place as prescribed N/A Experienced any changes in pain level or No management Left Footwear Regular Shoe Right Footwear Regular Shoe Pain Scale: 0-10 Numeric Is Patient Pain Free? Yes WC - Nurse 1 - General Ulcer Measurement Start: 12/30/21 13:08 Freq: Status: Active Protocol: Activity Type Activity Date Activity User E-sign Co-sign Detail Recorded Client Recorded Date Recorded By Document 12/30/21 13:08 KR [id number] 12/30/21 13:10 KR 12/30/21 13:08 Wound Center Nurse 1 #2-L ALEXANDER -Current Size (cm) - Length 0.1 -Current Size (cm) - Width 0.1 -Current Size (cm) - Depth 0.1 -Total Square Cm 0.01 -Exudate Amt Small -Exudate Type Serous -Wound Margin Distinct, Outline Attached -Granulation Amt Small (1-33%) -Granulation Quality [place] -Necrosis Amt None Present (0 %) -Texture (Gail-wound Skin Appearance) Assessed, Scarring -Moisture (Gial-wound Skin Appearance) No Abnormality, Assessed -Color (Gail-wound Skin Appearance) No Abnormality, Assessed -Temperature (Gail-wound Skin No Abnormality Appearance) (Pt Warm) -Tenderness on Palpation (Gail-wound No Skin Appearance) -Ulcer Cleansing Soap and Water -Foul Odor after Cleansing No -Anesthetic Used 5% Lidocaine Gel WC - Nurse 2 - General Ulcer CM Notes Start: 12/30/21 13:08 Freq: Status: Active Protocol: Activity Type Activity Date Activity User E-sign Co-sign Detail Recorded Client Recorded Date Recorded By Document 12/30/21 13:44 PL [id number] 12/30/21 13:44 PL 12/30/21 13:44 Wound Center Nurse 2 -Procedure Performed No -Wound/Ulcer Outcome Healed- Epithelialized Pain Scale: 0-10 Numeric Is Patient Pain Free? Yes Assessment/Plan Assessment/Plan (1) Leg swelling: CODE(S): M79.89 - Other specified soft tissue disorders (2) Leg edema: CODE(S): R60.0 - Localized edema (3) Venous stasis dermatitis: CODE(S): I87.2 - Venous insufficiency (chronic) (peripheral) (4) Postphlebitic syndrome with inflammation: CODE(S): I87.029 - Postthrombotic syndrome with inflammation of unspecified lower extremity (5) Obesity (BMI 30-39.9): CODE(S): E66.9 - Obesity, unspecified (6) Hypertension: CODE(S): I10 - Essential (primary) hypertension (7) Hyperlipidemia: CODE(S): E78.5 - Hyperlipidemia, unspecified (8) Vertigo: CODE(S): R42 - Dizziness and giddiness (9) History of deep vein thrombosis (DVT) of lower extremity: CODE(S): Z86.718 - Personal history of other venous thrombosis and embolism (10) History of pulmonary embolism: CODE(S): Z86.711 - Personal history of pulmonary embolism PLAN: Plan This is a 56-year-old male who is obese, who presented with swelling and edema in his lower extremities bilaterally, which had been present for over 1 year. The patient notes the swelling and edema in his lower extremities to be worse at day's end. 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 The patient's presenting symptoms and manifestations appear to be largely related to his daily routine and habits. We have had a lengthy discussion in regards to lifestyle modification. He sleeps on a flat mattress at night, and has been encouraged to continue doing so. Leg elevation has been encouraged during daytime hours. He has been encouraged to elevate his lower extremities is much as possible, with legs at heart level, or higher. Activity has been encouraged. Prolonged idle sitting has been discouraged. Weight loss has been recommended. We are to continue compression to the lower extremities by means of Tubigrip's. He is to wear each day until bedtime, then apply skin moisturizing lotion topically. Arrangements have been made for the patient to obtain CircAid Velcro compression garments, which are on order, and awaited for arrival. The CircAid compression garments will be used for long-term compression. The patient has been seen by a technology project manager recently, and his toenails have been trimmed, as had been recommended. The patient is now to be discharged, with swelling under control and no open wounds or ulcerations in the lower extremities. He is to await the receipt of the CircAid compression garments which have been on order. Once received, the [facility] nurse [facility], to assure the proper use of the garments. Total time: 28 minutes
== END 2022-01-19 23:59 | disposition home or self-care (01) ==
LOC: WC 12:45
PROVIDERS: PCP Internal Medicine; Visit Provider Surgery
DX: M79.89 Other specified soft tissue disorders (principal); R42 Dizziness and giddiness; E66.9 Obesity, unspecified; I87.2 Venous insufficiency (chronic) (peripheral); E78.5 Hyperlipidemia, unspecified; I10 Essential (primary) hypertension; R60.0 Localized edema; I83.11 Varicose veins of right lower extremity with inflammation; I83.12 Varicose veins of left lower extremity with inflammation; B35.1 Tinea unguium; Z79.82 Long term (current) use of aspirin; Z79.899 Other long term (current) drug therapy; Z86.718 Personal history of other venous thrombosis and embolism; Z86.711 Personal history of pulmonary embolism; I87.323 Chronic venous hypertension (idiopathic) with inflammation of bilateral lower extremity
CPT/HCPCS: 99213; G0463

== ENCOUNTER 2023-08-15 06:49 | Inpatient (IN) | payer MEDICAID, SELFPAY ==
[2023-08-15] VITALS (12 sets, daily range): BP systolic 149–184; BP diastolic 80–103; PULSE 79–100; RESP 18–29; TEMP 35.7–36.9; O2SAT 94–97; BMI 43.6; BMI 42.3
--- NOTE | 2023-08-15 07:22 | CT_ITS ---
We are attempting to reach an attending provider to discuss findings. An addendum with communication details will be sent when the communication is complete. STUDY: CTA CHEST REASON FOR EXAM: Male, 58 years old. right sided chest pain, hx PE RADIATION DOSAGE (If Supplied By Facility): CTDIvol = ( 11.47 ) mGy, DLP = ( 484.34 ) mGycm TECHNIQUE: The examination was performed with the intravenous administration of IV 100mL Isovue-370. Post-processing of the angiographic images was performed, with multiplanar reformation and 3D reconstruction. Individualized dose optimization techniques were used for this CT. COMPARISON: None. FINDINGS: Nearly occlusive bilateral pulmonary artery emboli are present at the most distal aspects of the main pulmonary arteries extending into the secondary and tertiary peripheral branches of the bilateral upper and lower lobes. No saddle embolus is present. Normal pulmonary arterial trunk. There is no demonstrated right heart enlargement or pericardial effusion or other signs of strain on the current study. Wedge-shaped consolidation in the posterior peripheral aspect of the right middle lobe could be related to infarction given the peripheral branches leading to this region are occluded with thrombus or could represent unrelated community acquired pneumonia. Mild bibasilar atelectasis with superimposed mild consolidation and small pleural effusion is present in the right lung base. Minimal interstitial/groundglass edema is present in the remaining bilateral perihilar regions of the lungs. Normal thoracic aorta and visualized great vessels. There is no demonstrated aortic dissection. Normal heart and pericardium. There are calcifications of the coronary arteries. Normal mediastinum. Normal hilar regions. Normal visualized trachea and bronchi. The lungs are well expanded. Normal chest wall structures. There are degenerative changes of thoracic spine. Normal visualized upper abdomen. CT/CTA Chest W/WO Contrast IMPRESSION: Bilateral pulmonary artery emboli. Right middle and lower lobe consolidation. 1. Pulmonary arteries = Nearly occlusive bilateral pulmonary artery emboli are present at the most distal aspects of the main pulmonary arteries extending into the secondary and tertiary peripheral branches of the bilateral upper and lower lobes. No saddle embolus is present. Normal pulmonary arterial trunk. 2. Lungs = Wedge-shaped consolidation in the posterior peripheral aspect of the right middle lobe could be related to infarction given the peripheral branches leading to this region are occluded with thrombus or could represent unrelated community acquired pneumonia. 3. Mild bibasilar atelectasis with superimposed mild consolidation and small pleural effusion is present in the right lung base. 4. Minimal interstitial/groundglass edema is present in the remaining bilateral perihilar regions of the lungs. Electronically Signed: Ke Willson MD at 8:55 EDT ,
--- NOTE | 2023-08-15 07:23 | EKG12_ITS ---
Test Reason : SOB Blood Pressure : / mmHG Vent. Rate : 095 BPM Atrial Rate : 095 BPM P-R Int : 192 ms QRS Dur : 128 ms QT Int : 362 ms P-R-T Axes : 033 -16 092 degrees QTc Int : 454 ms Normal sinus rhythm Left ventricular hypertrophy with QRS widening and repolarization abnormality ( Oscar product ) Cannot rule out Anteroseptal infarct , age undetermined Abnormal ECG Confirmed by SHER FLANNERY, ROSA ([id number]), supervising editor trailer GREGORY RUSSELL ([id number]) on 08/19/2023 6:14:40 AM Referred By: SANTIAGO Confirmed By:SITA OLIVAREZ MD
--- NOTE | 2023-08-15 07:32 | EDS_ITS ---
HPI History of Present Illness Chief Complaint: Chest Pain Informant: patient Narrative Narrative: Patient is a 58-year-old male with history of prior DVT and pulmonary emboli 15 years ago was treated on Coumadin, not currently on any medications edema of the lower left pain. Patient states that started around 6 AM this morning. He was in his normal state of health before this he has sharp pain in his right chest that time he takes of breath. He states it makes it so he cannot take a deep breath. Denies any recent cough or viral syndromes. Denies any fever or chills. Denies any radiation of the pain. Is concerned because this feels like the last time he had a pulmonary emboli. No GI or symptoms reported. No other complaints or concerns reported at this time. [facility] Medical History Anxiety Postphlebitic syndrome with inflammation History of pulmonary embolism History of deep vein thrombosis (DVT) of lower extremity Vertigo Hyperlipidemia Hypertension Obesity (BMI 30-39.9) Venous stasis dermatitis Leg edema Leg swelling Hypertension Home Medications ?Medication ?Instructions ?Recorded ?Last Taken ?Type lisinopril 40 mg tablet 40 mg PO DAILY 11/18/21 Unknown History amlodipine 10 mg tablet 10 mg PO DAILY 08/15/23 Unknown History chlorthalidone 25 mg tablet 25 mg PO DAILY 08/15/23 Unknown History Allergy/AdvReac Type Severity Reaction Status Date / Time No Known Allergies Allergy Verified 11/18/21 08:23 Social History Smoking Status: Former smoker ROS ROS ED Constitutional Constitutional ED: Denies chills or fever(s) Cardiovascular Cardiovascular: Reports as per HPI and chest pain; Denies palpitations or racing heartbeat Respiratory/Chest Respiratory/Chest: Reports dyspnea; Denies cough or sputum Gastrointestinal Gastrointestinal: Denies abdominal pain, nausea or vomiting Musculoskeletal Musculoskeletal: Reports other Details: Chronic bilateral leg edema?no acute change ; Denies myalgias Integumentary Denies rash Neurologic Neurologic: Denies headache(s), paresthesias or weakness Psychiatric Psychiatric: Denies anxiety EXAM Physical Exam Const Vital Signs: 08/15/23 06:49 08/15/23 06:56 08/15/23 06:58 Temperature 98.5 F Temperature Source Temporal Pulse Rate 96 Respiratory Rate 29 H Respiratory Effort Normal Respiratory Depth Normal Respiratory Pattern Tachypnea Blood Pressure 184/103 H 184/103 H Blood Pressure Mean 130 130 Pulse Ox 97 Oxygen Delivery Method Room Air 08/15/23 07:49 08/15/23 08:00 08/15/23 09:00 Temperature Temperature Source Pulse Rate 89 87 95 Respiratory Rate 24 H 20 H 18 Respiratory Effort Respiratory Depth Respiratory Pattern Blood Pressure 152/84 H 149/80 H 165/98 H Blood Pressure Mean 106 103 120 Pulse Ox 94 95 96 Oxygen Delivery Method Room Air Room Air 08/15/23 10:00 Temperature Temperature Source Pulse Rate 100 Respiratory Rate 25 H Respiratory Effort Respiratory Depth Respiratory Pattern Blood Pressure 150/83 H Blood Pressure Mean 105 Pulse Ox 94 Oxygen Delivery Method Room Air Positive well nourished and obese General Appearance ED: NAD Nutritional Appearance: obese HEENT Reports moist mucous membranes Eyes PERRL Neck supple and no JVD Chest Wall inspection of chest normal and palpation of chest normal Chest Narrative: No overlying rash of the chest wall. No reproducible tenderness with palpation of the chest wall. No crepitus. Resp normal respiratory effort and clear to auscultation bilaterally Resp Narrative: Mildly diminished breath sounds on the right Effort and Inspection: Negative for respiratory distress Auscultation: Negative for wheezes Cardio regular rate, regular rhythm and no murmurs Extremity Extremity Narrative: Bilateral lower extremity edema present, chronic appearing. Chronic venous stasis changes to the legs. General Extremety ED: Yes edema General Extremity: edema Neuro oriented x3 Sensorium / Orientation: awake and alert Motor Exam: Negative for general weakness Psych mental status grossly normal Skin no rashes or lesions noted MDM MDM MDM Narrative Medical decision making narrative: Patient evaluated for right-sided chest pain. Some associated shortness of breath. Patient is high risk for pulmonary emboli given his history of PE and his presentation. Blood pressure is elevated. Cardiac workup also obtained. Differential also includes pneumonia however patient does not have infectious symptoms. CBC largely normal. BMP shows a mild elevation of creatinine of 1.34 however this is actually improved compared to his prior creatinine of 2.173 years ago. I since he troponin is normal as 9 and EKG does not show acute ischemic changes however do not have a prior to compare to. CT of the chest does show bilateral nearly occlusive pulmonary artery emboli present at the most distal aspects of the main pulmonary arteries extending to the secondary tertiary peripheral branches. No saddle emboli is seen. In addition patient is a wedge-shaped consolidation of the posterior peripheral aspect of the right middle lobe which could be infarct. This correlates with his area of pain. Patient is given dose of fentanyl for his pain in the emergency room. Due to significant clot burden Case is discussed with vascular surgery, Dr. Dalton. He recommends a heparin drip and states that he will evaluate the patient as he might be candidate for clot retrieval. Patient does not have findings distant with right heart strain at this time and is hemodynamically stable. Bleed is stable for the PCU and I do nothing requires ICU at this time. Patient is agreeable with this plan of care. Case discussed with hospitalist and he is admitted to medicine service. History & Record Review Additional record(s) reviewed:: Prior labs Lab Data Attestation: I reviewed the patient's lab results. Labs: Laboratory Results - last 24 hr 08/15/23 08/15/23 06:57 09:05 WBC 10.7 RBC 4.62 Hgb 13.2 Hct 41.1 MCV 89.0 MCH 28.6 MCHC 32.1 RDW Std Deviation 40.6 RDW Coeff of [place] 12.5 Plt Count 217 MPV 10.1 Immature Gran % (Auto) 0.700 Neut % (Auto) 75.3 H Lymph % (Auto) 12.7 L [place] % (Auto) 8.1 Eos % (Auto) 2.9 Baso % (Auto) 0.3 Absolute Neuts (auto) 8.1 H Absolute Lymphs (auto) 1.36 Nucleated RBC % 0 PT 16.8 H INR 1.4 APTT 32.4 Sodium 137 Potassium 3.1 L Chloride 104 Carbon Dioxide 21.0 Anion Gap 12 BUN 13 Creatinine 1.34 H Estim Creat Clear Calc 89.21 Est GFR (MDRD) Af Amer 70 Est GFR (MDRD) Non-Af 58 L BUN/Creatinine Ratio 9.7 L Glucose 124 H Calcium 8.6 Troponin I High Sens 9 Radiography Diagnostic Testing: Clinical Impression(s) from Imaging Studies Chest CTA 08/15/23 07:22 IMPRESSION: Bilateral pulmonary artery emboli. Right middle and lower lobe consolidation. 1. Pulmonary arteries = Nearly occlusive bilateral pulmonary artery emboli are present at the most distal aspects of the main pulmonary arteries extending into the secondary and tertiary peripheral branches of the bilateral upper and lower lobes. No saddle embolus is present. Normal pulmonary arterial trunk. 2. Lungs = Wedge-shaped consolidation in the posterior peripheral aspect of the right middle lobe could be related to infarction given the peripheral branches leading to this region are occluded with thrombus or could represent unrelated community acquired pneumonia. 3. Mild bibasilar atelectasis with superimposed mild consolidation and small pleural effusion is present in the right lung base. 4. Minimal interstitial/groundglass edema is present in the remaining bilateral perihilar regions of the lungs. Electronically Signed: Ke Willson MD at 8:55 EDT , ADDENDUM: 08/15/23 0908 IMPRESSION: Bilateral pulmonary artery emboli. Right middle and lower lobe consolidation. 1. Pulmonary arteries = Nearly occlusive bilateral pulmonary artery emboli are present at the most distal aspects of the main pulmonary arteries extending into the secondary and tertiary peripheral branches of the bilateral upper and lower lobes. No saddle embolus is present. Normal pulmonary arterial trunk. 2. Lungs = Wedge-shaped consolidation in the posterior peripheral aspect of the right middle lobe could be related to infarction given the peripheral branches leading to this region are occluded with thrombus or could represent unrelated community acquired pneumonia. 3. Mild bibasilar atelectasis with superimposed mild consolidation and small pleural effusion is present in the right lung base. 4. Minimal interstitial/groundglass edema is present in the remaining bilateral perihilar regions of the lungs. N.B. : The above Results were Read Back by Ke Willson MD to Lizzy Sinclair DO, and understanding confirmed on 08/15/2023 09:01:22 (ET). Electronically Signed: Ke Willson MD at 8:55 EDT , Rhythm Strip Rhythm Strip: Sinus Rhythm Rate: 95 Ectopy: None EKG Initial EKG: Attestation: I personally reviewed and interpreted this EKG as follows: Interpretation: Sinus Rhythm Comments: Normal sinus rhythm rate of 95 bpm Left axis deviation LVH with QRS widening and repolarization ST depression in leads I and II Prior EKG tracings: not available for review Prior: No Prior Management Discussion w/another healthcare provider: Hospitalist, Organic Chemistry Professor and Radiologist Discharge Plan Dx/Rx/DC Orders Clinical Impression: Acute pulmonary embolism, Pulmonary infarct Disposition Disposition: Acute Care Hospital [facility] Discharge Date/Time: 08/15/23 10:39
[2023-08-15 07:46] LABS: Absolute Lymphocyte Count 1.36 X10^3/uL (0.83-4.51); Absolute Neutrophil Count 8.1 X10^3/uL (2.0-7.7); Basophil# 0.03 X10^3/uL; Basophil% 0.3 % (0-1); Eosinophil# 0.31 X10^3/uL; Eosinophils% 2.9 % (0-5); Hematocrit 41.1 % (40-54); Hemoglobin 13.2 g/dL (13.0-16.5); Lymphocyte # 1.36 X10^3/ul (0.83-4.51); Lymphocyte % 12.7 % (19-41); Mean Corp Hgb Conc 32.1 g/dL (32-36); Mean Corpuscular Hgb 28.6 pg (27.0-32.0); Mean Platelet Vol. 10.1 fl (6.2-12.0); Monocyte# 0.87 X10^3/uL; Monocyte% 8.1 % (0-10); NRBC Flagged by Analyzer 0 % (0-5); Neutrophil # 8.05 X10^3/uL (2.7-7.7); Neutrophil % 75.3 % (47-70); Platelet Count 217 K/mm3 (150-450); RBC Distribution Width CV 12.5 % (11.6-14.6); RBC Distribution Width SD 40.6 fl (35.1-43.9); Red Blood Count 4.62 M/mm3 (4.6-6.2); White Blood Count 10.7 K/mm3 (4.4-11.0)
[2023-08-15 08:02] LABS: Anion Gap 12 (5-15); BUN 13 mg/dL (7-18); BUN/Creat Ratio 9.7 RATIO (10-20); Calcium,Total 8.6 mg/dL (8.5-10.1); Chloride 104 mmol/L (98-107); Creatinine, Serum 1.34 mg/dL (0.70-1.30); EST Glomerular Filtration Rate 58 mL/min (>60); Est Glom Filt Rate - Afr Amer 70 mL/min (>60); Estimated Creatinine Clearance 89.21 ml/min; Glucose 124 mg/dL (74-106); Potassium 3.1 mmol/L (3.5-5.1); Sodium Level 137 mmol/L (136-145); Troponin-I HS (w/2H Reflex) 9 pg/mL (3.0-78.0)
[2023-08-15] MEDS: fentaNYL 100 MCG/2 ML Ampul 50 MCG IV (09:21)
[2023-08-15 09:23] LABS: International Normalized Ratio 1.4; Prothrombin Time (Protime)PT. 16.8 SECONDS (11.7-14.9)
[2023-08-15 09:24] LABS: Partial Thromboplast Time 32.4 Seconds (24.1-36.2)
[2023-08-15 09:41] LABS: Reflex Troponin-HS? (from REC) Y
[2023-08-15] MEDS: HEPARIN/D5w 25,000 UNITS 25,000 UNITS/250 ML IV.SOLN. 0.1 UNITS CONT INF (10:11)
[2023-08-15] MEDS: Heparin Injection (Vial) 5,000 UNIT/ML VIAL 4000 UNIT IV (10:11)
--- NOTE | 2023-08-15 10:11 | HP.PCM.HOS_ITS ---
[facility] - General General Date of Admission: 08/15/23 Date of Service: 08/15/23 Chief Complaint: Right-sided chest pain since yesterday morning HPI Narrative NESS WHITE, is a 58 M With history of DVT and pulmonary embolism came to ER with right-sided chest pain sudden onset is spontaneously yesterday morning. He stated this was constant localized on the right getting worse with deep breathing and had to take couple aspirin not relieve the pain but it did not go away completely. The pain persisted through last night and today in the morning. Denies fever or chills, cough, sputum production or recent illness. He said he had DVT/PE between 5 to 10 years and was in the hospital for 2 weeks and then was discharged on anticoagulant. He does not remember how long it took anticoagulant agent. In ED, blood pressure was elevated 180/103, heart rate 96/m, respiratory 29/min, no hypoxia. In ED, CT angiogram of chest shows bilateral pulmonary embolism. Labs and EKG all regular discussed with assessment plan. Patient started on IV heparin drip and vascular surgeon Dr. Cordell Dalton is being consulted. [facility] Medical History Anxiety Postphlebitic syndrome with inflammation History of pulmonary embolism History of deep vein thrombosis (DVT) of lower extremity Vertigo Hyperlipidemia Hypertension Obesity (BMI 30-39.9) Venous stasis dermatitis Leg edema Leg swelling Hypertension Home Medications ?Medication ?Instructions ?Recorded ?Last Taken ?Type lisinopril 40 mg tablet 40 mg PO DAILY 11/18/21 Unknown History amlodipine 10 mg tablet 10 mg PO DAILY 08/15/23 Unknown History chlorthalidone 25 mg tablet 25 mg PO DAILY 08/15/23 Unknown History Allergy/AdvReac Type Severity Reaction Status Date / Time No Known Allergies Allergy Verified 11/18/21 08:23 Social History Smoking Status: Former smoker ROS ROS Narrative Constitutional: Reports fatigue and weakness. No fever. Obesity 3 HEENT: Reports systems reviewed and no addt'l complaints, except as documented Respiratory/Chest: Denies COPD or sleep apnea or chronic lung disease. Chronic no acute shortness of breath or respiratory distress or wheezing. CVS: As described in HPI . Denies chronic heart disease including CHF, CAD, CAD or A-fib Gastrointestinal: Denies coffee ground emesis, hematemesis or vomiting Genitourinary: Denies burning urination or new urinary tract symptoms Musculoskeletal: Denies acute joint pain or limited range of motion. No acute injury Neurologic: Denies seizure-like symptoms. skin: No ulcer. No rash Endocrinology: Reports systems reviewed and no addt'l complaints, except as documented Hematologic/Lymphatic: Reports systems reviewed and no addt'l complaints, except as documented Rest 14 ROS are negative except as mentioned in HPI Vital Signs Vital Signs Vital Signs: 08/15/23 06:49 08/15/23 06:56 08/15/23 06:58 Temperature 98.5 F Temperature Source Temporal Pulse Rate 96 Respiratory Rate 29 H Respiratory Effort Normal Respiratory Depth Normal Respiratory Pattern Tachypnea Blood Pressure 184/103 H 184/103 H Blood Pressure Mean 130 130 Pulse Ox 97 Oxygen Delivery Method Room Air 08/15/23 07:49 08/15/23 08:00 08/15/23 09:00 Temperature Temperature Source Pulse Rate 89 87 95 Respiratory Rate 24 H 20 H 18 Respiratory Effort Respiratory Depth Respiratory Pattern Blood Pressure 152/84 H 149/80 H 165/98 H Blood Pressure Mean 106 103 120 Pulse Ox 94 95 96 Oxygen Delivery Method Room Air Room Air Weight Weight: 321 lb 13.998 oz Body Mass Index (BMI) 43.6 Results Lab / Micro Data 08/15/23 06:57 08/15/23 06:57 Labs: Laboratory Results - last 24 hr 08/15/23 06:57: WBC 10.7, RBC 4.62, Hgb 13.2, Hct 41.1, MCV 89.0, MCH 28.6, MCHC 32.1, RDW Std Deviation 40.6, RDW Coeff of Henry 12.5, Plt Count 217, MPV 10.1, Immature Gran % (Auto) 0.700, Neut % (Auto) 75.3 H, Lymph % (Auto) 12.7 L, [place] % (Auto) 8.1, Eos % (Auto) 2.9, Baso % (Auto) 0.3, Absolute Neuts (auto) 8.1 H, Absolute Lymphs (auto) 1.36, Nucleated RBC % 0, Sodium 137, Potassium 3.1 L, Chloride 104, Carbon Dioxide 21.0, Anion Gap 12, BUN 13, Creatinine 1.34 H, Estim Creat Clear Calc 89.21, Est GFR (MDRD) Af Amer 70, Est GFR (MDRD) Non-Af 58 L, BUN/Creatinine Ratio 9.7 L, Glucose 124 H, Calcium 8.6, Troponin I High Sens 9 08/15/23 09:05: PT 16.8 H, INR 1.4, APTT 32.4 Rhythm Strip Rhythm Strip: Sinus Rhythm Rate: 95 Ectopy: None Imaging Radiology Impression Chest CTA 08/15/23 07:22 IMPRESSION: Bilateral pulmonary artery emboli. Right middle and lower lobe consolidation. 1. Pulmonary arteries = Nearly occlusive bilateral pulmonary artery emboli are present at the most distal aspects of the main pulmonary arteries extending into the secondary and tertiary peripheral branches of the bilateral upper and lower lobes. No saddle embolus is present. Normal pulmonary arterial trunk. 2. Lungs = Wedge-shaped consolidation in the posterior peripheral aspect of the right middle lobe could be related to infarction given the peripheral branches leading to this region are occluded with thrombus or could represent unrelated community acquired pneumonia. 3. Mild bibasilar atelectasis with superimposed mild consolidation and small pleural effusion is present in the right lung base. 4. Minimal interstitial/groundglass edema is present in the remaining bilateral perihilar regions of the lungs. Electronically Signed: Ke Willson MD at 8:55 EDT Reading Location ID and State: [facility] / [place] , Service support , ADDENDUM: 08/15/23 0908 IMPRESSION: Bilateral pulmonary artery emboli. Right middle and lower lobe consolidation. 1. Pulmonary arteries = Nearly occlusive bilateral pulmonary artery emboli are present at the most distal aspects of the main pulmonary arteries extending into the secondary and tertiary peripheral branches of the bilateral upper and lower lobes. No saddle embolus is present. Normal pulmonary arterial trunk. 2. Lungs = Wedge-shaped consolidation in the posterior peripheral aspect of the right middle lobe could be related to infarction given the peripheral branches leading to this region are occluded with thrombus or could represent unrelated community acquired pneumonia. 3. Mild bibasilar atelectasis with superimposed mild consolidation and small pleural effusion is present in the right lung base. 4. Minimal interstitial/groundglass edema is present in the remaining bilateral perihilar regions of the lungs. N.B. : The above Results were Read Back by Ke Willson MD to Lizzy Sinclair DO, and understanding confirmed on 08/15/2023 09:01:22 (ET). Electronically Signed: Ke Willson MD at 8:55 EDT Reading Location ID and State: [address] [place] [address] , Service support , Assessment & Plan Assessment/Plan (1) Acute pulmonary embolism: QUALIFIERS: Pulmonary embolism type: other Acute cor pulmonale presence: without acute cor pulmonale Qualified Code(s): I26.99 - Other pulmonary embolism without acute cor pulmonale PLAN: Plan This is 58-year-old gentleman with history of prior DVT/PE came with the pressure chest pain diagnosed with bilateral pulmonary embolism 1. Acute bilateral pulmonary embolism nearly occlusive bilateral pulmonary artery involving distal aspect of main pulmonary artery extending to secondary tertiary peripheral branches of bilateral upper and lower lobes complicated with RML pulmonary infarct: Patient is being admitted in PCU. CTA chest individually reviewed and does not show saddle embolus and reported normal pulmonary trunk but the above findings. It also shows patient wedge-shaped consolidation in the posterior peripheral aspect of right middle lobe perhaps related to pulmonary infarct. CT chest also raised possibility of unrelated consolidative, unrelated community-acquired pneumonia but patient did not have clinical signs symptoms of pneumonia and therefore pneumonia is ruled out. Mild bibasilar atelectasis. Patient started on IV heparin drip after bolus. Vascular surgeon is consulted. IV fluid is ordered. 2D echo is ordered. Serial troponins negative. BNP was ordered but could not be done because machine is broken. 2. Hypertension: Blood pressure is elevated. Most recent 159/90. Continue home medication and titrate accordingly. 3. Dyslipidemia: Home medication continued. 4. Morbid obesity with complications of obesity including bilateral lower extremity edema probably varicose vein: BMI 42.9 kg/m? patient wears stockings for leg edema. Patient will need outpatient pulmonary evaluation for sleep apnea. CPAP at night 5. Mild hypokalemia: Potassium is getting replaced. 5. Abnormal creatinine, unclear acute on chronic: BUNs/creatinine 13/1.34. Since patient had one-time DONOVAN in December 2020 with creatinine 2.17. 7. DVT prophylaxis already on anticoagulant as heparin drip. Living will/advanced directive/end of life care: Patient does not have living will or advanced directive. Does not have negative power of corporate associate attorney for health. After discussion of benefits/risks procedures involved with full code, DNR CC arrest and DNR CC, the patient opted for full code. Patient does want artificial life support including intubation, tube feed, ventilator and/chest compression, central venous catheter, vasopressor and DC shock if needed Total time spent in [id number] encounter in discussion of advanced directive 17 minutes. Laboratory Results 08/15/23 06:57: WBC 10.7, RBC 4.62, Hgb 13.2, Hct 41.1, MCV 89.0, MCH 28.6, MCHC 32.1, RDW Std Deviation 40.6, RDW Coeff of Henry 12.5, Plt Count 217, MPV 10.1, Immature Gran % (Auto) 0.700, Neut % (Auto) 75.3 H, Lymph % (Auto) 12.7 L, [place] % (Auto) 8.1, Eos % (Auto) 2.9, Baso % (Auto) 0.3, Absolute Neuts (auto) 8.1 H, Absolute Lymphs (auto) 1.36, Nucleated RBC % 0, Sodium 137, Potassium 3.1 L, Chloride 104, Carbon Dioxide 21.0, Anion Gap 12, BUN 13, Creatinine 1.34 H, Estim Creat Clear Calc 89.21, Est GFR (MDRD) Af Amer 70, Est GFR (MDRD) Non-Af 58 L, BUN/Creatinine Ratio 9.7 L, Glucose 124 H, Calcium 8.6, Troponin I High Sens 9, B-Natriuretic Peptide Pending 08/15/23 09:05: PT 16.8 H, INR 1.4, APTT 32.4 08/15/23 10:10: Magnesium 2.4, Troponin I High Sens 12 Clinical Impression(s) from Imaging Studies Chest CTA 08/15/23 07:22 IMPRESSION: Bilateral pulmonary artery emboli. Right middle and lower lobe consolidation. 1. Pulmonary arteries = Nearly occlusive bilateral pulmonary artery emboli are present at the most distal aspects of the main pulmonary arteries extending into the secondary and tertiary peripheral branches of the bilateral upper and lower lobes. No saddle embolus is present. Normal pulmonary arterial trunk. 2. Lungs = Wedge-shaped consolidation in the posterior peripheral aspect of the right middle lobe could be related to infarction given the peripheral branches leading to this region are occluded with thrombus or could represent unrelated community acquired pneumonia. 3. Mild bibasilar atelectasis with superimposed mild consolidation and small pleural effusion is present in the right lung base. 4. Minimal interstitial/groundglass edema is present in the remaining bilateral perihilar regions of the lungs. Charges/Coding Visit Charges Inpatient E&M: 99499 Init Hosp L3 Procedures Hospitalists Procedures: 05174 Advncd Care Plan 30 Min
[2023-08-15 10:48] LABS: Magnesium 2.4 mg/dL (1.6-2.6); Troponin-I HS 12 pg/mL (3.0-78.0)
[2023-08-15] MEDS: Pantoprazole Sodium 40 MG Tablet PO (11:10)
[2023-08-15] MEDS: KCL 20MEQ in 0.9% NS 20 MEQ/1,000 ML IV.SOLN. 75 MEQ IV (11:13)
[2023-08-15] MEDS: Potassium Chloride Oral Tablet 20 MEQ 40 MEQ PO ×2 (13:58→16:49)
[2023-08-15 16:43] LABS: Partial Thromboplast Time 36.7 Seconds (24.1-36.2)
[2023-08-15] MEDS: Heparin Injection (Vial) 5,000 UNIT/ML VIAL IV (16:49)
--- NOTE | 2023-08-15 17:03 | EX.PCM.CON.S ---
Assessment & Plan Assessment/Plan (1) Acute pulmonary embolism: QUALIFIERS: Pulmonary embolism type: other Acute cor pulmonale presence: without acute cor pulmonale Qualified Code(s): I26.99 - Other pulmonary embolism without acute cor pulmonale PLAN: -CTA images reviewed, large clot burden but no RV strain with RV/LV ratio of 0.8 -trop normal X2, BNP pending -echo pending -no tachycardia or hypotension -on room air, no SOB at rest -pain improved since heparin started -does not appear to meet criteria for thrombectomy -will also check O2 with ambulation and await echo -will discuss with pulmonology HPI Consult Data Date of Consult: 08/15/23 HPI Narrative HPI Narrative: NESS WHITE, is a 58 M who presents with abrupt onset right chest pain, exertional SOB. Found to have extensive bilateral PE. He is hemodynamically stable, on RA, no SOB at rest and able to speak in full sentences. Prior bilateral LE DVT and PE about 15 years prior; did not have any provoking factors at that time. Currently no changes in activity, no recent illness/injury. He did recently lose his job so maybe some change in activity but also unfortunatley not currently with insurance which will make medication selection options limited. REPLACED BY [facility] Medical History Anxiety Postphlebitic syndrome with inflammation History of pulmonary embolism History of deep vein thrombosis (DVT) of lower extremity Vertigo Hyperlipidemia Hypertension Obesity (BMI 30-39.9) Venous stasis dermatitis Leg edema Leg swelling Hypertension Home Medications ?Medication ?Instructions ?Recorded ?Last Taken ?Type lisinopril 40 mg tablet 40 mg PO DAILY 11/18/21 Unknown History amlodipine 10 mg tablet 10 mg PO DAILY 08/15/23 Unknown History chlorthalidone 25 mg tablet 25 mg PO DAILY 08/15/23 Unknown History Allergy/AdvReac Type Severity Reaction Status Date / Time No Known Allergies Allergy Verified 11/18/21 08:23 Social History Smoking Status: Former smoker ROS Constitutional Constitutional: Denies chills, fever(s), frequent falls, lethargy or weakness Eyes Eyes: Denies blind spots, change in vision or loss of vision ENT HEENT: Denies bleeding gums, hoarseness or sore throat Cardiovascular Cardiovascular: Reports chest pain at rest, dyspnea on exertion and leg edema; Denies abdominal pain, bluish discoloration of hand/feet, claudication, cold extremities, cyanosis, erythema on extremities, irregular heart rhythm, leg ulcers, numbness in extremities or weakness in extremities Respiratory/Chest Respiratory/Chest: Reports shortness of breath with exertion; Denies cough, excessive phlegm production, shortness of breath at rest or wheezing Gastrointestinal Gastrointestinal: Denies anorexia, change in stool character, constipation, diarrhea, melena or rectal bleeding Genitourinary Genitourinary: Denies dysuria or hematuria Musculoskeletal Musculoskeletal: Denies abnormal gait Integumentary Integumentary: Reports change in pigmentation and lesions; Denies erythema, non-healing lesions or wounds Neurologic Neurologic: Denies abnormal speech, focal weakness, headache(s), loss of vision, numbness, paresthesias or sensory deficit Hematologic/Lymphatic Hematologic/Lymphatic: Denies easy bleeding, easy bruising or lymphadenopathy Physical Exam Const alert, oriented x3, no apparent distress and healthy appearing General Appearance: cooperative; Negative for combative or lethargic Orientation / Consciousness: awake Exam Limitations: no limitations HEENT Head and Scalp: normocephalic and atraumatic Eyes EOMs intact bilaterally General Eye: normal appearance of both eyes Neck full ROM, no lymphadenopathy and thyroid normal General: trachea midline; Negative for lymphadenopathy or tenderness Thyroid: thyroid normal Resp normal respiratory effort and no use of accessory muscles Effort and Inspection: Negative for labored, stridor or audible wheezes Cardio regular rate and regular rhythm Peripheral Pulses: brachial pulses present, radial pulses present, femoral pulses present, popliteal pulses present, posterior tibial pulses present and dorsalis pedis pulses present GI non-tender and non-distended; Negative for hepatosplenomegaly Back/Spine Cervical Spine: cervical ROM normal Extremity full ROM, normal capillary refill and no clubbing, cyanosis or edema Skin no rashes or lesions noted and no wounds Neuro oriented x3, CN's II-XII intact bilaterally, no focal motor deficits and no sensory deficits noted Psych thought process normal, cooperative, affect normal, speech normal and activity/motor behavior normal Lab / Micro Data 08/15/23 06:57 08/15/23 06:57 Labs: Laboratory Results - last 24 hr 08/15/23 06:57: WBC 10.7, RBC 4.62, Hgb 13.2, Hct 41.1, MCV 89.0, MCH 28.6, MCHC 32.1, RDW Std Deviation 40.6, RDW Coeff of Henry 12.5, Plt Count 217, MPV 10.1, Immature Gran % (Auto) 0.700, Neut % (Auto) 75.3 H, Lymph % (Auto) 12.7 L, [place] % (Auto) 8.1, Eos % (Auto) 2.9, Baso % (Auto) 0.3, Absolute Neuts (auto) 8.1 H, Absolute Lymphs (auto) 1.36, Nucleated RBC % 0, Sodium 137, Potassium 3.1 L, Chloride 104, Carbon Dioxide 21.0, Anion Gap 12, BUN 13, Creatinine 1.34 H, Estim Creat Clear Calc 89.21, Est GFR (MDRD) Af Amer 70, Est GFR (MDRD) Non-Af 58 L, BUN/Creatinine Ratio 9.7 L, Glucose 124 H, Calcium 8.6, Troponin I High Sens 9 08/15/23 09:05: PT 16.8 H, INR 1.4, APTT 32.4 08/15/23 10:10: Magnesium 2.4, Troponin I High Sens 12 08/15/23 16:15: APTT 36.7 H Rhythm Strip Rhythm Strip: Sinus Rhythm Rate: 95 Ectopy: None Imaging Radiology Impression Chest CTA 08/15/23 07:22 IMPRESSION: Bilateral pulmonary artery emboli. Right middle and lower lobe consolidation. 1. Pulmonary arteries = Nearly occlusive bilateral pulmonary artery emboli are present at the most distal aspects of the main pulmonary arteries extending into the secondary and tertiary peripheral branches of the bilateral upper and lower lobes. No saddle embolus is present. Normal pulmonary arterial trunk. 2. Lungs = Wedge-shaped consolidation in the posterior peripheral aspect of the right middle lobe could be related to infarction given the peripheral branches leading to this region are occluded with thrombus or could represent unrelated community acquired pneumonia. 3. Mild bibasilar atelectasis with superimposed mild consolidation and small pleural effusion is present in the right lung base. 4. Minimal interstitial/groundglass edema is present in the remaining bilateral perihilar regions of the lungs. Electronically Signed: Ke Willson MD at 8:55 EDT , ADDENDUM: 08/15/23 0908 IMPRESSION: Bilateral pulmonary artery emboli. Right middle and lower lobe consolidation. 1. Pulmonary arteries = Nearly occlusive bilateral pulmonary artery emboli are present at the most distal aspects of the main pulmonary arteries extending into the secondary and tertiary peripheral branches of the bilateral upper and lower lobes. No saddle embolus is present. Normal pulmonary arterial trunk. 2. Lungs = Wedge-shaped consolidation in the posterior peripheral aspect of the right middle lobe could be related to infarction given the peripheral branches leading to this region are occluded with thrombus or could represent unrelated community acquired pneumonia. 3. Mild bibasilar atelectasis with superimposed mild consolidation and small pleural effusion is present in the right lung base. 4. Minimal interstitial/groundglass edema is present in the remaining bilateral perihilar regions of the lungs. N.B. : The above Results were Read Back by Ke Willson MD to Lizzy Sinclair DO, and understanding confirmed on 08/15/2023 09:01:22 (ET). Electronically Signed: Ke Willson MD at 8:55 EDT , Charges/Coding Multi Select Codes Visit Charges Visit Charges: 54533 Init Hosp L3
[2023-08-15 23:24] LABS: Partial Thromboplast Time 39.9 Seconds (24.1-36.2)
[2023-08-16] MEDS: Heparin Injection (Vial) 5,000 UNIT/ML VIAL IV ×2 (00:12→06:49)
[2023-08-16 04:00] VITALS: BP 120/69; PULSE 97; RESP 18; TEMP 36; O2SAT 97
--- NOTE | 2023-08-16 05:55 | ECHOCS_ITS ---
Reason For Study: PULMONARY EMBOLISM Procedure This was a 2D Doppler, Color Flow transthoracic echocardiogram. The study was technically difficult. Contrast injection was performed. Exam performed portable in patient room. Left Ventricle Normal LV size. The estimated ejection fraction is 65 %. No evidence for diastolic dysfunction. No regional wall motion abnormalities noted. Right Ventricle Normal RV size. Normal systolic function. Atria The left and right atria are normal. No doppler evidence for ASD. Mitral Valve There is no mitral valve stenosis. No mitral valve insufficiency. Tricuspid Valve There is no tricuspid stenosis. Trivial tricuspid valve insufficiency. Unable to estimate RV systolic pressure due to insufficient tricuspid regurgitant envelope. Aortic Valve Trisinus/trileaflet aortic valve. Aortic sclerosis, no stenosis. There is no aortic stenosis. No aortic valve insufficiency. Pulmonic Valve There is no pulmonic valvular stenosis. Trivial pulmonic valve insufficiency. Great Vessels Normal aortic root. Pericardium/Pleural No pericardial effusion. Medication Diluted definity 2ml given slow IV push to enhance endocardial definition. MMode/2D Measurements & Calculations LVIDd: 3.8 cm IVSd: 1.6 cm LVOT diam: 2.1 cm LVIDs: 2.0 cm LVPWd: 1.3 cm RVDd: 3.5 cm FS: 47.8 % LVOT area: 3.4 cm2 Ao root diam: 3.6 cm LAV(MOD-bp): 58.6 ml LVAd ap4: 34.7 cm2 LAV(MOD-bp) Indexed: 22.8 ml/m2 LVLd ap4: 8.2 cm LAV(MOD-sp2): 62.8 ml EDV(MOD-sp4): 117.8 ml LAV(MOD-sp4): 51.7 ml EDV(sp4-el): 124.8 ml LVAs ap4: 21.6 cm2 LVLs ap4: 7.4 cm ESV(MOD-sp4): 51.1 ml ESV(sp4-el): 53.9 ml EF(MOD-sp4): 56.6 % EF(sp4-el): 56.8 % LVAd ap2: 37.4 cm2 SV(MOD-sp4): 66.7 ml SV(MOD-sp2): 78.9 ml LVLd ap2: 8.6 cm EDV(MOD-sp2): 129.0 ml EDV(sp2-el): 138.3 ml LVAs ap2: 22.1 cm2 LVLs ap2: 7.7 cm ESV(MOD-sp2): 50.1 ml ESV(sp2-el): 53.5 ml EF(MOD-sp2): 61.2 % SV(sp4-el): 70.9 ml LA dimension(2D): 4.4 cm LA A4 area: 17.1 cm2 RA A4 area: 8.6 cm2 TAPSE: 1.6 cm Time Measurements MV dec time: 0.29 sec Doppler Measurements & Calculations MV E max larry: 69.8 cm/sec Lat Peak E' Larry: 15.1 cm/sec Med Peak E' Larry: 9.4 cm/sec MV A max larry: 81.7 cm/sec E/E' lat: 4.6 E/E' med: 7.5 MV E/A: 0.85 Ao V2 max: 173.9 cm/sec LV V1 max: 149.3 cm/sec MV dec slope: 244.1 cm/sec2 Ao max P.1 mmHg LV V1 max P.9 mmHg Ao V2 mean: 136.7 cm/sec LV V1 mean P.7 mmHg Ao mean P.8 mmHg LV V1 mean: 116.0 cm/sec Ao V2 VTI: 28.9 cm LV V1 VTI: 27.2 cm AV (velocity ratio): 0.94 REINALDO(I,D): 3.2 cm2 REINALDO(V,D): 2.9 cm2 SV(LVOT): 92.9 ml PA V2 max: 131.2 cm/sec PA max PG (full): 1.4 mmHg ECHO/Echo Complete W/ Contrast Interpretation Summary The estimated ejection fraction is 65 %. No evidence for diastolic dysfunction. Ordering Physician: Rito Lopez Referring Physician: Hardik Gale M.D. Performed By: Regine Ramos RDCS
[2023-08-16 06:30] LABS: Absolute Lymphocyte Count 0.98 X10^3/uL (0.83-4.51); Absolute Neutrophil Count 6.7 X10^3/uL (2.0-7.7); Basophil# 0.01 X10^3/uL; Basophil% 0.1 % (0-1); Eosinophil# 0.44 X10^3/uL; Hematocrit 37.8 % (40-54); Hemoglobin 11.9 g/dL (13.0-16.5); Lymphocyte # 0.98 X10^3/ul (0.83-4.51); Lymphocyte % 11.1 % (19-41); Mean Corp Hgb Conc 31.5 g/dL (32-36); Mean Corpuscular Hgb 28.5 pg (27.0-32.0); Mean Corpuscular Volume 90.6 fL (80-94); Mean Platelet Vol. 9.6 fl (6.2-12.0); Monocyte# 0.69 X10^3/uL; Monocyte% 7.8 % (0-10); NRBC Flagged by Analyzer 0 % (0-5); Neutrophil # 6.66 X10^3/uL (2.7-7.7); Neutrophil % 75.5 % (47-70); Platelet Count 197 K/mm3 (150-450); RBC Distribution Width CV 12.8 % (11.6-14.6); RBC Distribution Width SD 42.1 fl (35.1-43.9); Red Blood Count 4.17 M/mm3 (4.6-6.2); White Blood Count 8.8 K/mm3 (4.4-11.0)
[2023-08-16 06:40] LABS: Partial Thromboplast Time 39.7 Seconds (24.1-36.2)
[2023-08-16 06:52] LABS: Anion Gap 7 (5-15); BUN 9 mg/dL (7-18); Calcium,Total 8.5 mg/dL (8.5-10.1); Chloride 109 mmol/L (98-107); Creatinine, Serum 1.12 mg/dL (0.70-1.30); EST Glomerular Filtration Rate 72 mL/min (>60); Est Glom Filt Rate - Afr Amer 87 mL/min (>60); Estimated Creatinine Clearance 104.83 ml/min; Glucose 92 mg/dL (74-106); Potassium 3.9 mmol/L (3.5-5.1); Sodium Level 138 mmol/L (136-145)
[2023-08-16] MEDS: 0.9% Saline Lock 10 ML Syringe IV ×2 (06:52→18:01)
[2023-08-16] MEDS: HEPARIN/D5w 25,000 UNITS 25,000 UNITS/250 ML IV.SOLN. 16 UNITS CONT INF (07:37)
[2023-08-16] MEDS: Pantoprazole Sodium 40 MG Tablet PO (07:38)
--- NOTE | 2023-08-16 08:59 | CON.PCM_ITS ---
Assessment & Plan Assessment/Plan (1) Other specified peripheral vascular diseases: PLAN: Patient was examined evaluated. All findings were discussed with the patient. All questions were answered to the patient's satisfaction. The patient's bilateral lower extremity were wiped with bath wipes with removal of all debris to the leg and foot without incident. Toenails 1 through 5 bilateral were debrided down to and including normal levels with a double-action nail nipper without incident. Patient expressed relief after debridement. Educated the patient to continue to wash his bilateral lower extremity when he gets a chance around the hospital. He was also educated the patient to remove the storage out of his shower so that he may bathe on a regular basis which she was understanding of. Medicine: On board, medical management Vascular surgery: On board Patient will follow-up with Dr. Renteria in outpatient in private office. Podiatry to sign off and follow from a distance. Thank you for consultation! (2) Lymphedema: (3) Tinea unguium: (4) Xerosis cutis: HPI Consult Data Date of Consult: 08/16/23 HPI Narrative Reason for Consultation: Unkept feet, elongated toenails HPI Narrative: NESS WHITE, is a 58 M who presents with history of DVT and pulmonary embolism came to ER with right-sided chest pain sudden onset is spontaneously yesterday morning. He stated this was constant localized on the right getting worse with deep breathing and had to take couple aspirin not relieve the pain but it did not go away completely. The pain persisted through last night and today in the morning. Patient has a history of DVT/PE between 5 to 10 years ago and was hospitalized for 2 weeks and discharged on anticoagulation in the past. While in the emergency department CT angio of the chest shows bilateral pulmonary emboli. Patient was started on IV heparin drip and vascular surgery Dr. Dalton was consulted. Patient also states that he lives alone and uses his shower as storage place. He admits to not washing his bilateral lower extremity or cutting his nails for some time. When questioned at bedside today his last shower was approximately 1 month ago. Patient does not see a country printer apprentice regularly. He denies trauma. Denies constitutional symptoms. No other pedal complaints at this time. REPLACED BY [facility] Medical History Anxiety Postphlebitic syndrome with inflammation History of pulmonary embolism History of deep vein thrombosis (DVT) of lower extremity Vertigo Hyperlipidemia Hypertension Obesity (BMI 30-39.9) Venous stasis dermatitis Leg edema Leg swelling Hypertension Home Medications ?Medication ?Instructions ?Recorded ?Last Taken ?Type lisinopril 40 mg tablet 40 mg PO DAILY 11/18/21 Unknown History amlodipine 10 mg tablet 10 mg PO DAILY 08/15/23 Unknown History chlorthalidone 25 mg tablet 25 mg PO DAILY 08/15/23 Unknown History Allergy/AdvReac Type Severity Reaction Status Date / Time No Known Allergies Allergy Verified 11/18/21 08:23 Social History Smoking Status: Former smoker Physical Exam Narrative Vascular: DP and PT pulse are palpable. CFT is brisk to the bilateral lower extremity. Skin temperature great is warm to warm from proximal ankle to distal digit. No focal increase appreciated. Evidence of cobblestone distribution secondary to xerosis appreciated bilateral lower extremity. Neurological: Light touch intact. Patient response to painful stimuli. Dermatological: Toenails 1 through 5 are thickened elongated discolored with evidence of subungual debris's. Evidence of cobblestone distribution secondary to his xerosis appreciated bilateral lower extremity. Evidence of dirt to the skin and toenails. Webspaces 1 through 4 bilaterally show evidence of debris but no tach. No open lesions or abrasions. No subcutaneous nodules. Musculoskeletal: Muscle strength 5 and 5 in all quadrants bilateral. Mild pain to palpation to toenails 1 through 5 bilateral. No pain with compression to bilateral lower extremity. No pain with calf compression bilateral. Const alert, oriented x3 and no apparent distress Lab / Micro Data 08/16/23 06:00 08/16/23 06:00 Labs: Laboratory Results - last 24 hr 08/15/23 09:05: PT 16.8 H, INR 1.4, APTT 32.4 08/15/23 10:10: Magnesium 2.4, Troponin I High Sens 12 08/15/23 16:15: APTT 36.7 H 08/15/23 22:59: APTT 39.9 H 08/16/23 06:00: WBC 8.8, RBC 4.17 L, Hgb 11.9 L, Hct 37.8 L, MCV 90.6, MCH 28.5, MCHC 31.5 L, RDW Std Deviation 42.1, RDW Coeff of Henry 12.8, Plt Count 197, MPV 9.6, Immature Gran % (Auto) 0.500, Neut % (Auto) 75.5 H, Lymph % (Auto) 11.1 L, Nolan % (Auto) 7.8, Eos % (Auto) 5.0, Baso % (Auto) 0.1, Absolute Neuts (auto) 6.7, Absolute Lymphs (auto) 0.98, Nucleated RBC % 0, APTT 39.7 H, Sodium 138, Potassium 3.9, Chloride 109 H, Carbon Dioxide 22.0, Anion Gap 7, BUN 9, Creatinine 1.12, Estim Creat Clear Calc 104.83, Est GFR (MDRD) Af Amer 87, Est GFR (MDRD) Non-Af 72, BUN/Creatinine Ratio 8.0 L, Glucose 92, Calcium 8.5 Rhythm Strip Rhythm Strip: Sinus Rhythm Rate: 95 Ectopy: None Imaging Radiology Impression Chest CTA 08/15/23 07:22 IMPRESSION: Bilateral pulmonary artery emboli. Right middle and lower lobe consolidation. 1. Pulmonary arteries = Nearly occlusive bilateral pulmonary artery emboli are present at the most distal aspects of the main pulmonary arteries extending into the secondary and tertiary peripheral branches of the bilateral upper and lower lobes. No saddle embolus is present. Normal pulmonary arterial trunk. 2. Lungs = Wedge-shaped consolidation in the posterior peripheral aspect of the right middle lobe could be related to infarction given the peripheral branches leading to this region are occluded with thrombus or could represent unrelated community acquired pneumonia. 3. Mild bibasilar atelectasis with superimposed mild consolidation and small pleural effusion is present in the right lung base. 4. Minimal interstitial/groundglass edema is present in the remaining bilateral perihilar regions of the lungs. Electronically Signed: Ke Willson MD at 8:55 EDT , ADDENDUM: 08/15/23 0908 IMPRESSION: Bilateral pulmonary artery emboli. Right middle and lower lobe consolidation. 1. Pulmonary arteries = Nearly occlusive bilateral pulmonary artery emboli are present at the most distal aspects of the main pulmonary arteries extending into the secondary and tertiary peripheral branches of the bilateral upper and lower lobes. No saddle embolus is present. Normal pulmonary arterial trunk. 2. Lungs = Wedge-shaped consolidation in the posterior peripheral aspect of the right middle lobe could be related to infarction given the peripheral branches leading to this region are occluded with thrombus or could represent unrelated community acquired pneumonia. 3. Mild bibasilar atelectasis with superimposed mild consolidation and small pleural effusion is present in the right lung base. 4. Minimal interstitial/groundglass edema is present in the remaining bilateral perihilar regions of the lungs. N.B. : The above Results were Read Back by Ke Willson MD to Lizzy Sinclair DO, and understanding confirmed on 08/15/2023 09:01:22 (ET). Electronically Signed: Ke Willson MD at 8:55 EDT ,
--- NOTE | 2023-08-16 09:38 | PN.HOSP_ITS ---
Reason for Visit Reason for Visit: Diagnoses Other pulmonary embolism without acute cor pulmonale (08/15/23) Objective Data Objective Data Vital Signs: Vital Signs Temp Pulse Resp BP Pulse Ox O2 Del Method 96.8 F L 97 18 120/69 97 Room Air 08/16/23 04:00 08/16/23 04:00 08/16/23 04:00 08/16/23 04:00 08/16/23 04:00 08/16/23 07:41 Oxygen Delivery Method Room Air Weight: 311 lb 9.586 oz Body Mass Index (BMI) 42.3 Intake & Output: Intake and Output for Last 24 Hours 08/14/23 08/15/23 08/16/23 23:59 23:59 23:59 Intake Total 478.91 / 718.91 1671.09 / 1671.09 Balance 478.91 / 718.91 1671.09 / 1671.09 Lab / Micro Data 08/16/23 06:00 08/16/23 06:00 Labs: Laboratory Results - last 24 hr 08/15/23 10:10: Magnesium 2.4, Troponin I High Sens 12 08/15/23 16:15: APTT 36.7 H 08/15/23 22:59: APTT 39.9 H 08/16/23 06:00: WBC 8.8, RBC 4.17 L, Hgb 11.9 L, Hct 37.8 L, MCV 90.6, MCH 28.5, MCHC 31.5 L, RDW Std Deviation 42.1, RDW Coeff of Henry 12.8, Plt Count 197, MPV 9.6, Immature Gran % (Auto) 0.500, Neut % (Auto) 75.5 H, Lymph % (Auto) 11.1 L, [place]ave % (Auto) 7.8, Eos % (Auto) 5.0, Baso % (Auto) 0.1, Absolute Neuts (auto) 6.7, Absolute Lymphs (auto) 0.98, Nucleated RBC % 0, APTT 39.7 H, Sodium 138, Potassium 3.9, Chloride 109 H, Carbon Dioxide 22.0, Anion Gap 7, BUN 9, Creatinine 1.12, Estim Creat Clear Calc 104.83, Est GFR (MDRD) Af Amer 87, Est GFR (MDRD) Non-Af 72, BUN/Creatinine Ratio 8.0 L, Glucose 92, Calcium 8.5 Rhythm Strip Rhythm Strip: Sinus Rhythm Rate: 95 Ectopy: None Assessment & Plan Assessment/Plan (1) Acute pulmonary embolism: QUALIFIERS: Acute cor pulmonale presence: without acute cor pulmonale Pulmonary embolism type: other Qualified Code(s): I26.99 - Other pulmonary embolism without acute cor pulmonale PLAN: Plan This is 58-year-old gentleman with history of prior DVT/PE came with the pressure chest pain diagnosed with bilateral pulmonary embolism 1. Acute bilateral pulmonary embolism nearly occlusive bilateral pulmonary artery involving distal aspect of main pulmonary artery extending to secondary tertiary peripheral branches of bilateral upper and lower lobes complicated with RML pulmonary infarct: Patient is being admitted in PCU. CTA chest individually reviewed and does not show saddle embolus and reported normal pulmonary trunk but the above findings. It also shows patient wedge-shaped consolidation in the posterior peripheral aspect of right middle lobe perhaps related to pulmonary infarct. CT chest also raised possibility of unrelated consolidative, unrelated community-acquired pneumonia but patient did not have clinical signs symptoms of pneumonia and therefore pneumonia is ruled out. Mild bibasilar atelectasis. Patient started on IV heparin drip after bolus. Vascular surgeon is consulted. IV fluid is ordered. 2D echo is ordered. Serial troponins negative. BNP was ordered but could not be done because machine is broken. 08/15: Troponin normal . ECHO shows normal RV size and function. EF 65%. Acute cor pulmonale ruled out. Heparin drip changed to Enoxaprin 1 mg/kg q 12 hrly. Warfarin starrted. Monitor PT/INR. nO HYPOXIA 99% on RA. 2. Hypertension: Blood pressure is elevated. Most recent 159/90. Continue home medication and titrate accordingly. 08/15: bp IS CONTROLLED 134/86. 3. Dyslipidemia: Home medication continued. 4. Morbid obesity with complications of obesity including bilateral lower extremity edema probably varicose vein: BMI 42.9 kg/m? patient wears stockings for leg edema. Patient will need outpatient pulmonary evaluation for sleep apnea. CPAP at night 5. Mild hypokalemia: Potassium is getting replaced. 5. Abnormal creatinine, unclear acute on chronic: BUNs/creatinine 13/1.34. Since patient had one-time DONOVAN in December 2020 with creatinine 2.17. 7. DVT prophylaxis already on anticoagulant as heparin drip. Living will/advanced directive/end of life care: Patient does not have living will or advanced directive. Does not have negative power of commonwealth attorney for health. After discussion of benefits/risks procedures involved with full code, DNR CC arrest and DNR CC, the patient opted for full code. Patient does want artificial life support including intubation, tube feed, ventilator and/chest compression, central venous catheter, vasopressor and DC shock if needed Total time spent in [id number] encounter in discussion of advanced directive 17 minutes. Laboratory Results 08/15/23 06:57: WBC 10.7, RBC 4.62, Hgb 13.2, Hct 41.1, MCV 89.0, MCH 28.6, MCHC 32.1, RDW Std Deviation 40.6, RDW Coeff of Henry 12.5, Plt Count 217, MPV 10.1, Immature Gran % (Auto) 0.700, Neut % (Auto) 75.3 H, Lymph % (Auto) 12.7 L, Mohave % (Auto) 8.1, Eos % (Auto) 2.9, Baso % (Auto) 0.3, Absolute Neuts (auto) 8.1 H, Absolute Lymphs (auto) 1.36, Nucleated RBC % 0, Sodium 137, Potassium 3.1 L, Chloride 104, Carbon Dioxide 21.0, Anion Gap 12, BUN 13, Creatinine 1.34 H, Estim Creat Clear Calc 89.21, Est GFR (MDRD) Af Amer 70, Est GFR (MDRD) Non-Af 58 L, BUN/Creatinine Ratio 9.7 L, Glucose 124 H, Calcium 8.6, Troponin I High Sens 9, B-Natriuretic Peptide Pending 08/15/23 09:05: PT 16.8 H, INR 1.4, APTT 32.4 08/15/23 10:10: Magnesium 2.4, Troponin I High Sens 12 Clinical Impression(s) from Imaging Studies Chest CTA 08/15/23 07:22 IMPRESSION: Bilateral pulmonary artery emboli. Right middle and lower lobe consolidation. 1. Pulmonary arteries = Nearly occlusive bilateral pulmonary artery emboli are present at the most distal aspects of the main pulmonary arteries extending into the secondary and tertiary peripheral branches of the bilateral upper and lower lobes. No saddle embolus is present. Normal pulmonary arterial trunk. 2. Lungs = Wedge-shaped consolidation in the posterior peripheral aspect of the right middle lobe could be related to infarction given the peripheral branches leading to this region are occluded with thrombus or could represent unrelated community acquired pneumonia. 3. Mild bibasilar atelectasis with superimposed mild consolidation and small pleural effusion is present in the right lung base. 4. Minimal interstitial/groundglass edema is present in the remaining bilateral perihilar regions of the lungs. Electronically Signed: Ke Willson MD at 8:55 EDT , ADDENDUM: 08/15/23 0908 IMPRESSION: Bilateral pulmonary artery emboli. Right middle and lower lobe consolidation. 1. Pulmonary arteries = Nearly occlusive bilateral pulmonary artery emboli are present at the most distal aspects of the main pulmonary arteries extending into the secondary and tertiary peripheral branches of the bilateral upper and lower lobes. No saddle embolus is present. Normal pulmonary arterial trunk. 2. Lungs = Wedge-shaped consolidation in the posterior peripheral aspect of the right middle lobe could be related to infarction given the peripheral branches leading to this region are occluded with thrombus or could represent unrelated community acquired pneumonia. 3. Mild bibasilar atelectasis with superimposed mild consolidation and small pleural effusion is present in the right lung base. 4. Minimal interstitial/groundglass edema is present in the remaining bilateral perihilar regions of the lungs. N.B. : The above Results were Read Back by Ke Willson MD to Lizzy Sinclair DO, and understanding confirmed on 08/15/2023 09:01:22 (ET). Electronically Signed: Ke Willson MD at 8:55 EDT , Echocardiogram 08/16/23 05:55 Interpretation Summary The estimated ejection fraction is 65 %. No evidence for diastolic dysfunction. Clinical Impression(s) from Imaging Studies Chest CTA 08/15/23 07:22 IMPRESSION: Bilateral pulmonary artery emboli. Right middle and lower lobe consolidation. 1. Pulmonary arteries = Nearly occlusive bilateral pulmonary artery emboli are present at the most distal aspects of the main pulmonary arteries extending into the secondary and tertiary peripheral branches of the bilateral upper and lower lobes. No saddle embolus is present. Normal pulmonary arterial trunk. 2. Lungs = Wedge-shaped consolidation in the posterior peripheral aspect of the right middle lobe could be related to infarction given the peripheral branches leading to this region are occluded with thrombus or could represent unrelated community acquired pneumonia. 3. Mild bibasilar atelectasis with superimposed mild consolidation and small pleural effusion is present in the right lung base. 4. Minimal interstitial/groundglass edema is present in the remaining bilateral perihilar regions of the lungs. Charges/Coding Visit Charges Inpatient E&M: 77675 Subs Hosp L2
[2023-08-16 09:55] VITALS: BP 152/96; PULSE 87; RESP 18; TEMP 37.2; O2SAT 97
[2023-08-16 13:23] LABS: Partial Thromboplast Time 42.7 Seconds (24.1-36.2)
[2023-08-16 16:26] VITALS: BP 134/84; PULSE 67; RESP 18; TEMP 35.9; O2SAT 99
[2023-08-16] MEDS: Enoxaparin 150 MG/ML Syringe 140 MG SC (18:01)
[2023-08-16 20:45] VITALS: BP 128/72; PULSE 66; RESP 16; TEMP 36.7; O2SAT 98
[2023-08-16] MEDS: Ammonium Lactate 225 gm Bottle 1 APPLIC TOPICAL (20:51)
[2023-08-17 03:00] VITALS: BP 124/74; PULSE 73; RESP 16; TEMP 36.7; O2SAT 98
[2023-08-17] MEDS: Acetaminophen 325 MG Tablet 650 MG PO (05:41)
[2023-08-17] MEDS: Enoxaparin 150 MG/ML Syringe 140 MG SC (05:42)
[2023-08-17 07:17] LABS: International Normalized Ratio 1.2; Prothrombin Time (Protime)PT. 15.2 SECONDS (11.7-14.9)
[2023-08-17 07:20] LABS: Basophil# 0.01 X10^3/uL; Basophil% 0.1 % (0-1); Eosinophil# 0.56 X10^3/uL; Eosinophils% 8.1 % (0-5); Hemoglobin 11.8 g/dL (13.0-16.5); Lymphocyte % 11.5 % (19-41); Mean Corp Hgb Conc 31.9 g/dL (32-36); Mean Corpuscular Hgb 29.4 pg (27.0-32.0); Mean Platelet Vol. 11.5 fl (6.2-12.0); Monocyte# 0.49 X10^3/uL; Monocyte% 7.1 % (0-10); NRBC Flagged by Analyzer 0 % (0-5); Neutrophil # 5.02 X10^3/uL (2.7-7.7); Neutrophil % 72.3 % (47-70); POSITIVE COUNT YES; Platelet Count 184 K/mm3 (150-450); RBC Distribution Width CV 12.8 % (11.6-14.6); RBC Distribution Width SD 43.3 fl (35.1-43.9); Red Blood Count 4.02 M/mm3 (4.6-6.2); White Blood Count 6.9 K/mm3 (4.4-11.0)
[2023-08-17 07:23] LABS: Differential Indicated SCAN CRITERIA MET
[2023-08-17 07:24] LABS: Anion Gap 7 (5-15); BUN 9 mg/dL (7-18); Calcium,Total 8.3 mg/dL (8.5-10.1); Chloride 107 mmol/L (98-107); Creatinine, Serum 1.12 mg/dL (0.70-1.30); EST Glomerular Filtration Rate 72 mL/min (>60); Est Glom Filt Rate - Afr Amer 87 mL/min (>60); Estimated Creatinine Clearance 104.83 ml/min; Glucose 95 mg/dL (74-106); Potassium 3.7 mmol/L (3.5-5.1); Sodium Level 136 mmol/L (136-145)
[2023-08-17 08:42] VITALS: BP 137/78; PULSE 68; RESP 18; TEMP 36.7; O2SAT 99
[2023-08-17] MEDS: Pantoprazole Sodium 40 MG Tablet PO (08:43)
[2023-08-17] MEDS: Ammonium Lactate 225 gm Bottle 1 APPLIC TOPICAL (08:43)
[2023-08-17 08:57] VITALS: O2SAT 93; O2SAT 99
--- NOTE | 2023-08-17 09:36 | DCINST_ITS ---
Discharge Instructions Follow Up Care Test Results: Test results from this visit will be discussed in further detail at your follow- up appointment, if applicable. Discharge Plan Admission Admit Date/Time: 08/15/23 10:06 Primary Reason for Your Visit: Bilateral diffuse PE Attending Provider: Rito Lopez Primary Care Provider: Hardik Gale Consulting Providers: Cordell Dalton; Dave Renteria Discharge Orders/Prescriptions Prescriptions: New warfarin [Jantoven] 5 mg Tablet 5 mg PO DINNER 30 Days Qty: 30 3RF enoxaparin [Lovenox] 150 mg/mL syringe 140 mg subcut BID 5 Days Qty: 10 0RF Continued lisinopril 40 mg Tablet 40 mg PO DAILY amlodipine 10 mg tablet 10 mg PO DAILY chlorthalidone 25 mg tablet 25 mg PO DAILY Referrals / Follow Up: Cordell Dalton MD [Med Staff - Active Staff] - Within 1 Month Hardik Gale MD [Primary Care Provider] - Within 2 Weeks Disposition Disposition (needs filled in before D/C Order can be placed): Home, Self Care
--- NOTE | 2023-08-17 09:59 | CASEMGMT ---
Addendum entered by Katty Hays 08/17/23 11:43: Social Work SW did let pt know that his medications were switched, and he will not need to use the hospital assistance program as the makers of the medication offer a 30 day free trial. Pt states undetrstanding. BETTY Moeller Addendum entered by Katty Hays 08/17/23 11:36: Social Work Physician changed pt's medication from Lovenox and Coumadin to Eliquis. There was concern pt may not be able to follow up w/daily blood draws once pt is on Coumadin. SW spoke w/the pharmacy, they can use the program through Eliquis to get pt his first 30 days free, so hospital assist not needed at this time. They will deliver the medication to pt's room. BETTY Moeller Addendum entered by Katty Hays 08/17/23 11:02: Social Work Cost of pt's medications is $135. SW spoke w/pt, let him know cost is $135. This may be more than he is able to ask his friend to cover. He would like to use hospital assist and understands it is just one time per year. SW let the pharmacy know and sent down the hospital assist program. Med may be changed however, SW let pharmacy know to hold off on filling the scripts. BETTY Moeller Original Note: Social Work SW met w/pt in room in regard to self pay status. Pt is interested in applying for Medicaid, agreeable to meet w/Nicolette from [employer]. SW gave pt resources including [employer], [employer] [employer] telephone number, prescription assistance programs, [employer], [employer], [facility] assistance program, and Cristy Flynn. We spoke about the cost of prescriptions when he is ready to leave here. Pt states his friend Adair has helped in the past. SW explained we can see what the cost is. SW spoke w/pt about utilizing hospital assist for meds if necessary, SW explained this program can be used only once per year. Pt states understanding. Pt asked SW about applying for disability, SW gave pt information on this. Pt states was working up until a month and a half ago. 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 [facility] then decided to let all of their temporary employees go. SW spoke w/pt about LW/POA, pt states if he were to fill out these documents he would put his friend Adair as POA. Pt declined to add anyone tp the demographics at this time, just wanted to leave it as Adair being the primary contact. SW did review the LW/POA documents w/pt, did also give pt the SW rac card and explained he can call to make an appt to come back in to complete, or can complete on his own. SW asked pt about his home being cluttered. Pt states now that he is feeling better he does feel he will be able to clean up his home himself. SW did provide a couple of cleaning resources to pt that also may be able to help. SW asked pt about his mental health, pt stating not having any concerns at present, is feeling good, not interested in any kind of counseling at this time. YOAN did send an email to Nicolette gandara/[employer] inquiring if she can follow up w/pt. SW will follow up for possible medication assist. BETTY Moeller
--- NOTE | 2023-08-17 10:39 | CASEMGMT ---
GIRMA BOYD Assessment Face to Face with patient for initial transition planning/care coordination assessment. GIRMA BOYD introduced self and role at [facility], pt voices understanding. Pt is A&Ox4 and is resting comfortably in bed and is calm. Care providers, pharmacy, and demographics verified. Admitting dx: BL PE PCP: Baljinder Specialists: Denies Preferred Pharmacy: [facility] Insurance: Pt is SP. SW has already talked to the pt about this and the pt plans to apply for [facility]. Prescription Benefit: Pt was given resources regarding Rx Benefit programs. Pt is getting prescribed Warfarin and Lovenox and plans to utilize the Rx assistance program here for these medications. LNOK: Adair Nguyen (Friend) Living Arrangements: Pt lives alone in a ground level apartment that is one level with a flat entrance. ADLs/IADLs: Ind Transportation: Self DME: Denies all DME uses or needs HHC/SNF: Denies history or needs Pt?s goal: Home Plan: 6-Click is 24. Pt does not qualify for home O2. Pt denies the need for HHC, OP Therapy or SNF. Pt has a DC order in and states that he feels safe returning home today. DEB/YOAN to follow up on Rx assistance. Erich Somers RN, CM
[2023-08-17 10:50] LABS: Differential Comment SCANNED
--- NOTE | 2023-08-17 11:05 | DCINST_ITS ---
Discharge Instructions Diet Discharge Diet: No restrictions, Low fat / Low cholesterol and 2000 mg Sodium Diet Activity Discharge Activity: Return to Normal Activity Weight Bearing Status: Weight bearing as tolerated Dressing / Incision Call your doctor if you observe: Fever of 101 or Higher, Coldness, Increased Pain, Numbness or Tingling, Change in Color, Inability to urinate, Inability to have a bowel movement, Shortness of breath, Dizziness, Fainting spells, Swelling in the ankles, Chest pain, Prolonged hiccupping, Increased palpitations (irregular heartbeat) and Calf discomfort Follow Up Care When: IN 2 WEEKS Test Results: Test results from this visit will be discussed in further detail at your follow- up appointment, if applicable. Discharge Plan Admission Admit Date/Time: 08/15/23 10:06 Primary Reason for Your Visit: Bilateral diffuse PE Attending Provider: Rito Lopez Primary Care Provider: Hardik Gale Consulting Providers: Cordell Dalton; Dave Renteria Discharge Orders/Prescriptions Prescriptions: New Eliquis DVT-PE Treat 30D Start 5 mg (74 tabs) tablets,dose pack 5 mg PO BID Qty: 74 0RF Rx Instructions: 10 mg (2 tabs) twice daily for 7 days and then twice daily to continue Continued lisinopril 40 mg Tablet 40 mg PO DAILY amlodipine 10 mg tablet 10 mg PO DAILY chlorthalidone 25 mg tablet 25 mg PO DAILY Referrals / Follow Up: Cordell Dalton MD [Med Staff - Active Staff] - Within 1 Month Vibha Han NP, CONSTITUTIONAL LAW PROFESSOR-C [Non-Staff] - 08/18/23 11:00 am Disposition Disposition (needs filled in before D/C Order can be placed): Home, Self Care
--- NOTE | 2023-08-17 11:06 | PCM.DC.SUM ---
Providers Date of Admission: 08/15/23 Date of Discharge: 08/17/23 Primary Care Physician: Dr. Hardik Gale MD Consultations 08/15/23 10:46 Consult: Vascular Surgery Routine Consulting Provider: Cordell Dalton Reason for Consult: B/L Pulm embolism EMERGENT Consult: No Notified: Yes Date Notified: 08/15/23 Time Notified: 10:07 Method of Notification: ED Physician Initiated 08/15/23 14:01 Consult: Podiatry Routine Consulting Provider: Dave Renteria Reason for Consult: Unkept feet/overgrown toenails EMERGENT Consult: No Notified: Yes Date Notified: 08/15/23 Time Notified: 14:21 Method of Notification: Text 08/15/23 14:02 Consult: Onc/Wound/window repairer Routine Comment: Reason for Consult:: BLE Reason For Visit: B/L PULM EMBOLISM Diagnosis Discharge Diagnosis (1) Acute pulmonary embolism: Status: Acute Code(s): I26.99 - Other pulmonary embolism without acute cor pulmonale Qualifiers: Acute cor pulmonale presence: without acute cor pulmonale Pulmonary embolism type: other Qualified Code(s): I26.99 - Other pulmonary embolism without acute cor pulmonale Plan This is 58-year-old gentleman with history of prior DVT/PE came with the pressure chest pain diagnosed with bilateral pulmonary embolism 1. Acute bilateral pulmonary embolism nearly occlusive bilateral pulmonary artery involving distal aspect of main pulmonary artery extending to secondary tertiary peripheral branches of bilateral upper and lower lobes complicated with RML pulmonary infarct: Patient is being admitted in PCU. CTA chest individually reviewed and does not show saddle embolus and reported normal pulmonary trunk but the above findings. It also shows patient wedge-shaped consolidation in the posterior peripheral aspect of right middle lobe perhaps related to pulmonary infarct. CT chest also raised possibility of unrelated consolidative, unrelated community-acquired pneumonia but patient did not have clinical signs symptoms of pneumonia and therefore pneumonia is ruled out. Mild bibasilar atelectasis. Patient started on IV heparin drip after bolus. Vascular surgeon is consulted. IV fluid is ordered. 2D echo is ordered. Serial troponins negative. BNP was ordered but could not be done because machine is broken. 08/15: Troponin normal . ECHO shows normal RV size and function. EF 65%. Acute cor pulmonale ruled out. Heparin drip changed to Enoxaprin 1 mg/kg q 12 hrly. Warfarin started. Monitor PT/INR. nO HYPOXIA 99% on RA. 08/16: No acute issues overnight. Home qualification oxygen ordered. Discussed with the vascular surgeon and we agreed that no need for catheter-based thrombolytic therapy. Patient is applying for Medicaid and the serosal issues. Discussed with the oil field caser and coupon given for 30-day starter pack for [facility]. Follow-up in pulmonary clinic for evaluation of sleep apnea and PE. Follow-up with Dr. Cordell Morgan, vascular surgeon 2. Hypertension: Blood pressure is elevated. Most recent 159/90. Continue home medication and titrate accordingly. 08/15: bp IS CONTROLLED 134/86. 08/16: Blood pressure is controlled. 3. Dyslipidemia: Home medication continued. 4. Morbid obesity with complications of obesity including bilateral lower extremity edema probably varicose vein: BMI 42.9 kg/m? patient wears stockings for leg edema. Patient will need outpatient pulmonary evaluation for sleep apnea. CPAP at night 5. Mild hypokalemia: Potassium is getting replaced. 5. Abnormal creatinine, unclear acute on chronic: BUNs/creatinine 13/1.34. Since patient had one-time DONOVAN in December 2020 with creatinine 2.17. 7. DVT prophylaxis already on anticoagulant as heparin drip. Living will/advanced directive/end of life care: Patient does not have living will or advanced directive. Does not have negative power of energy attorney for health. After discussion of benefits/risks procedures involved with full code, DNR CC arrest and DNR CC, the patient opted for full code. Patient does want artificial life support including intubation, tube feed, ventilator and/chest compression, central venous catheter, vasopressor and DC shock if needed Laboratory Results 08/15/23 06:57: WBC 10.7, RBC 4.62, Hgb 13.2, Hct 41.1, MCV 89.0, MCH 28.6, MCHC 32.1, RDW Std Deviation 40.6, RDW Coeff of Henry 12.5, Plt Count 217, MPV 10.1, Immature Gran % (Auto) 0.700, Neut % (Auto) 75.3 H, Lymph % (Auto) 12.7 L, [place] % (Auto) 8.1, Eos % (Auto) 2.9, Baso % (Auto) 0.3, Absolute Neuts (auto) 8.1 H, Absolute Lymphs (auto) 1.36, Nucleated RBC % 0, Sodium 137, Potassium 3.1 L, Chloride 104, Carbon Dioxide 21.0, Anion Gap 12, BUN 13, Creatinine 1.34 H, Estim Creat Clear Calc 89.21, Est GFR (MDRD) Af Amer 70, Est GFR (MDRD) Non-Af 58 L, BUN/Creatinine Ratio 9.7 L, Glucose 124 H, Calcium 8.6, Troponin I High Sens 9, B-Natriuretic Peptide Pending 08/15/23 09:05: PT 16.8 H, INR 1.4, APTT 32.4 08/15/23 10:10: Magnesium 2.4, Troponin I High Sens 12 Clinical Impression(s) from Imaging Studies Chest CTA 08/15/23 07:22 IMPRESSION: Bilateral pulmonary artery emboli. Right middle and lower lobe consolidation. 1. Pulmonary arteries = Nearly occlusive bilateral pulmonary artery emboli are present at the most distal aspects of the main pulmonary arteries extending into the secondary and tertiary peripheral branches of the bilateral upper and lower lobes. No saddle embolus is present. Normal pulmonary arterial trunk. 2. Lungs = Wedge-shaped consolidation in the posterior peripheral aspect of the right middle lobe could be related to infarction given the peripheral branches leading to this region are occluded with thrombus or could represent unrelated community acquired pneumonia. 3. Mild bibasilar atelectasis with superimposed mild consolidation and small pleural effusion is present in the right lung base. 4. Minimal interstitial/groundglass edema is present in the remaining bilateral perihilar regions of the lungs. Electronically Signed: Ke Willson MD at 8:55 EDT , ADDENDUM: 08/15/23 0908 IMPRESSION: Bilateral pulmonary artery emboli. Right middle and lower lobe consolidation. 1. Pulmonary arteries = Nearly occlusive bilateral pulmonary artery emboli are present at the most distal aspects of the main pulmonary arteries extending into the secondary and tertiary peripheral branches of the bilateral upper and lower lobes. No saddle embolus is present. Normal pulmonary arterial trunk. 2. Lungs = Wedge-shaped consolidation in the posterior peripheral aspect of the right middle lobe could be related to infarction given the peripheral branches leading to this region are occluded with thrombus or could represent unrelated community acquired pneumonia. 3. Mild bibasilar atelectasis with superimposed mild consolidation and small pleural effusion is present in the right lung base. 4. Minimal interstitial/groundglass edema is present in the remaining bilateral perihilar regions of the lungs. N.B. : The above Results were Read Back by Ke Willson MD to Lizzy Sinclair DO, and understanding confirmed on 08/15/2023 09:01:22 (ET). Electronically Signed: Ke Willson MD at 8:55 EDT , Echocardiogram 08/16/23 05:55 Interpretation Summary The estimated ejection fraction is 65 %. No evidence for diastolic dysfunction. Clinical Impression(s) from Imaging Studies Chest CTA 08/15/23 07:22 IMPRESSION: Bilateral pulmonary artery emboli. Right middle and lower lobe consolidation. 1. Pulmonary arteries = Nearly occlusive bilateral pulmonary artery emboli are present at the most distal aspects of the main pulmonary arteries extending into the secondary and tertiary peripheral branches of the bilateral upper and lower lobes. No saddle embolus is present. Normal pulmonary arterial trunk. 2. Lungs = Wedge-shaped consolidation in the posterior peripheral aspect of the right middle lobe could be related to infarction given the peripheral branches leading to this region are occluded with thrombus or could represent unrelated community acquired pneumonia. 3. Mild bibasilar atelectasis with superimposed mild consolidation and small pleural effusion is present in the right lung base. 4. Minimal interstitial/groundglass edema is present in the remaining bilateral perihilar regions of the lungs. Medications at Discharge Home Medications lisinopril 40 mg tablet 40 mg PO DAILY blood pressure 11/18/21 amlodipine 10 mg tablet 10 mg PO DAILY blood pressure 08/15/23 chlorthalidone 25 mg tablet 25 mg PO DAILY blood pressure 08/15/23 apixaban 5 mg (74 tabs) tablets in a dose pack (Eliquis DVT-PE Treat 30D Start) 5 mg PO BID #74 tabs 08/17/23 Physical Exam Narrative Seen and examined on the day of discharge No acute issues. Physical exam General: Alert, Oriented x3, Cooperative. BMI 42.3 kg/m2 , morbid obesity HEENT: PERRLA, EOMI, Normocephalic Oral: Oral mucosa moist. Deep oropharyngeal structures couldn't be visualized. Neck: Supple, No JVD, Negative Carotid Bruits Chest wall/Lungs: Air entry diminished in bilateral lung bases. No crepts. No hypoxia or tachypnea. Cardiovascular: Sinus rhythm, Normal S1, Normal S2, No M/G/R Abdomen: Bowel Sounds Present, Soft, Non Tender, Non-Distended : No dysuria. No renal angle tenderness. No suprapubic tenderness. Extremities: chronic leg edema,wears stockings. Possible varicose veins/chronic venous insufficiency. Skin: No rashes, No breakdown Musculoskeletal: No acute tenderness to Palpation of Joints or Extremities. Neurological: Cranial nerves II-XII grossly intact, DTR 2+/4. No acute focal neurological deficit. Psych/Mental Status: Flat affect. Weight / BMI Weight Weight: 311 lb 9.586 oz Body Mass Index (BMI) 42.3 ABG / Lab / Microbiology Data 08/17/23 06:05 08/17/23 06:05 Laboratory: Laboratory Results - last 24 hr 08/16/23 12:52: APTT 42.7 H 08/17/23 06:05: WBC 6.9, RBC 4.02 L, Hgb 11.8 L, Hct 37.0 L, MCV 92.0, MCH 29.4, MCHC 31.9 L, RDW Std Deviation 43.3, RDW Coeff of Henry 12.8, Plt Count 184, MPV 11.5, Immature Gran % (Auto) 0.900, Neut % (Auto) 72.3 H, Lymph % (Auto) 11.5 L, [place] % (Auto) 7.1, Eos % (Auto) 8.1 H, Baso % (Auto) 0.1, Absolute Neuts (auto) 5.0, Absolute Lymphs (auto) 0.80 L, Nucleated RBC % 0, PT 15.2 H, INR 1.2, Sodium 136, Potassium 3.7, Chloride 107, Carbon Dioxide 22.0, Anion Gap 7, BUN 9, Creatinine 1.12, Estim Creat Clear Calc 104.83, Est GFR (MDRD) Af Amer 87, Est GFR (MDRD) Non-Af 72, BUN/Creatinine Ratio 8.0 L, Glucose 95, Calcium 8.3 L Radiography Diagnostic Testing: Radiology Impression Echocardiogram 08/16/23 05:55 Interpretation Summary The estimated ejection fraction is 65 %. No evidence for diastolic dysfunction. Ordering Physician: Rito Lopez Referring Physician: Hardik Gale M.D. Performed By: Regine Ramos RDCS Meaningful Use Info Meaningful Use Meaningful Use Diagnoses (Choose all that apply): VTE Ischemic Stroke Statin Dosing Therapy Reference: STATIN DOSE THERAPY REFERENCE: * Patients > 75 years receive moderate or high dose statin therapy. * Patients 75 years or YOUNGER should receive HIGH intensity statin dose unless contraindicated. You will be required to document reason for non-treatment if statin daily dose does not meet guidelines. HIGH DOSE STATIN THERAPY DAILY Atorvastatin > than or = to 40 mg Rosuvastatin > than or = to 20 mg Amlodipine + Atorvastatin > than or = to 2.5/40 mg Ezetimibe + Simvastatin 10/80 mg Simvastatin 80mg VTE Anticoag overlap given w/in hospital stay or rx'd at sd?: No Reason overlap not ordered, prescribed, or given for 5 days: Treatment Not Indicated Discharge Plan Admission Admit Date/Time: 08/15/23 10:06 Primary Reason for Your Visit: Bilateral diffuse PE Attending Provider: Rito Lopez Primary Care Provider: Hardik Gale Consulting Providers: Cordell Dalton; Dave Renteria Discharge Orders/Prescriptions Prescriptions: New Eliquis DVT-PE Treat 30D Start 5 mg (74 tabs) tablets,dose pack 5 mg PO BID Qty: 74 0RF Rx Instructions: 10 mg (2 tabs) twice daily for 7 days and then twice daily to continue Continued lisinopril 40 mg Tablet 40 mg PO DAILY amlodipine 10 mg tablet 10 mg PO DAILY chlorthalidone 25 mg tablet 25 mg PO DAILY Referrals / Follow Up: Jeffry Veras DO [Med Staff - Active Staff] - Within 1 Month (Bilateral diffuse pulmonary embolism. Morbid obesity, needs sleep study) Cordell Dalton MD [Med Staff - Active Staff] - Within 1 Month Vibha Han PHARMACY ASSISTANT, PHARMACY ASSISTANT-C [Non-Staff] - 08/18/23 11:00 am Disposition Disposition (needs filled in before D/C Order can be placed): Home, Self Care Charges/Coding Visit Charges Inpatient E&M: 53311 Disch Hosp >30min
--- NOTE | 2023-08-17 11:22 | PHA.DC.MC.R ---
Pharmacy [facility] has performed discharge medication reconciliation and counseling for this patient. 1. APIXABAN 10MG PO BID X 7 DAYS, THEN 5MG PO BID THEREAFTER The patient's discharge medication list was reviewed for discrepancies and discrepancies were resolved. The patient was counseled on the following discharge medications and changes in medications for homegoing were reviewed. The Reason for Use, instructions for use, and potential side effects were reviewed for all new medications. The patient's questions regarding all of their medications were answered. The patient was able to verbally demonstrate an understanding of their discharge medications. Medications at Discharge Home Medications lisinopril 40 mg tablet 40 mg PO DAILY blood pressure 11/18/21 amlodipine 10 mg tablet 10 mg PO DAILY blood pressure 08/15/23 chlorthalidone 25 mg tablet 25 mg PO DAILY blood pressure 08/15/23 apixaban 5 mg (74 tabs) tablets in a dose pack (Eliquis DVT-PE Treat 30D Start) 5 mg PO BID #74 tabs 08/17/23
--- NOTE | 2023-08-17 11:25 | CASEMGMT ---
Social Work SW asked pt about LW/POA. He has not completed these documents, may be interested in completing on his own or coming back to complete. SW gave pt the documents and the rac card, reviewed the documents w/pt. BETTY Moeller
[2023-08-17 12:06] LABS: BNP,B-Type NATRIURETIC PEPTIDE 2.4 pg/mL (0-100)
[2023-08-17 12:48] VITALS: BP 137/84; PULSE 84; RESP 16; TEMP 35.9; O2SAT 98
== END 2023-08-17 13:31 | disposition home or self-care (01) | DRG 176 ==
LOC: ED 07:33 → PCU 10:26
PROVIDERS: Internal Medicine; Admitting Provider Internal Medicine; Emergency Provider Emergency Medicine; PCP Internal Medicine; Visit Provider Internal Medicine
DX: I26.99 Other pulmonary embolism without acute cor pulmonale (principal); Z68.41 Body mass index [BMI] 40.0-44.9, adult; B35.1 Tinea unguium; E66.01 Morbid (severe) obesity due to excess calories; I10 Essential (primary) hypertension; I73.89 Other specified peripheral vascular diseases; E78.5 Hyperlipidemia, unspecified; I83.893 Varicose veins of bilateral lower extremities with other complications; E87.6 Hypokalemia; L85.3 Xerosis cutis; I89.0 Lymphedema, not elsewhere classified; R94.4 Abnormal results of kidney function studies; Z59.7 Insufficient social insurance and welfare support; Z56.89 Other problems related to employment; Z79.899 Other long term (current) drug therapy; Z86.711 Personal history of pulmonary embolism; Z86.718 Personal history of other venous thrombosis and embolism; Z87.891 Personal history of nicotine dependence
CPT/HCPCS: 36415; 71275; 80048; 83735; 83880; 84484; 85025; 85610; 85730; 93005; 93306; 94668; 97802; 99252; 99285; Q9957; Q9967; A4216; C8929; G0463